=== PATIENT | female | born 1940 | race Caucasian/White ===

== ENCOUNTER 2020-01-06 08:04 | Outpatient (CLI) | payer OTHER, SELFPAY ==
[2020-01-06 08:37] LABS: Basophils Percent Auto 0.5 % (0.2-1.2); Eosinophils Absolute Auto 0.1 K/mm3 (0-0.3); Eosinophils Percent Auto 1.8 % (0-4.4); Hematocrit 41.8 % (37.0-47.0); Immature Granulocyte Absolute 0.02 K/mm3 (0.00-0.031); Immature Granulocyte Percent A 0.3 % (0-0.5); Lymphocytes Absolute Auto 1.13 K/mm3 (0.9-3.2); Mean Corpuscular HGB Conc 33.5 g/dl (32-36); Mean Corpuscular Hemoglobin 27.9 pg (26-34); Mean Corpuscular Volume 83.4 fl (80-100); Mean Platelet Volume 8.7 fl (7.4-10.4); Monocytes Absolute Auto 0.7 K/mm3 (0.1-0.6); Monocytes Percent Auto 10.5 % (2.6-8.5); Neutrophils Absolute Auto 4.3 K/mm3 (1.3-6.7); Neutrophils Percent Auto 68.9 % (45.5-73.1); Platelet Count Result 231 k/mm3 (150-375); Red Blood Count 5.01 M/mm3 (4.2-5.4); White Blood Count 6.3 K/mm3 (4.5-10.0)
[2020-01-06 08:48] LABS: Alanine Aminotransferase 26 U/L (4-35); Albumin Level 4.7 g/dL (3.5-5.1); Alkaline Phosphatase 95 U/L (38-126); Anion Gap 10 mmol/L (8-16); Aspartate Amino Transferase 30 U/L (14-36); Bilirubin,Total 0.7 mg/dL (0.2-1.3); Blood Urea Nitrogen 17 mg/dL (7-17); Calcium 9.8 mg/dL (8.4-10.2); Carbon Dioxide 27 mmol/L (22-30); Chloride 101 mmol/L (98-107); Cholesterol 226 mg/dL (0-200); Estimated Glomerular Filt Rate > 60; Glucose 105 mg/dL (65-105); HDL Direct 40 mg/dL; Potassium 3.9 mmol/L (3.4-5.0); Sodium 138 mmol/L (137-145); Triglycerides 150 mg/dL (<150)
[2020-01-06 08:59] LABS: LDL Cholesterol Direct 139 mg/dL
[2020-01-06 09:03] LABS: Add Urine Microscopic? YES; Appearance Urine Clear (Clear); Bacteria Urine Trace /hpf; Bilirubin Urine Negative (Negative); Blood Urine Negative (Negative); Color Urine Yellow (Yellow); Glucose Urine UA Negative (Negative); Ketones Urine Negative (Negative); Leukocyte Esterase Ur Trace LEU/UL (NEGATIVE); Nitrate Urine Negative (Negative); Protein Urine Negative (Negative); RBC Urine 0-2 /hpf (0-2); Specific Grav Ur 1.016 (1.001-1.035); Squamous Epithelial Cell Urine Rare /hpf (Few); Transitional Epi Cells Urine Rare /hpf (None Seen); WBC Urine 0-3 /hpf (0-3)
[2020-01-06 09:36] LABS: Vitamin D 25 Hydroxy 31.6 ng/mL
[2020-01-06 11:11] LABS: Hemoglobin A1C 5.6 % (<5.7)
== END 2020-01-06 08:05 | disposition home or self-care (01) ==
PROVIDERS: PCP Internal Medicine; Visit Provider Internal Medicine
DX: E55.9 Vitamin D deficiency, unspecified (principal); I10 Essential (primary) hypertension; R73.01 Impaired fasting glucose; E78.5 Hyperlipidemia, unspecified
CPT/HCPCS: 36415; 80053; 80061; 81001; 82306; 83036; 84443; 85025

== ENCOUNTER 2020-06-17 10:29 | Outpatient (CLI) | payer OTHER, SELFPAY ==
--- NOTE | ~2020-06-17 | MM_ITS ---
EXAMINATION: MM screening [facility] BI w rishi HISTORY: Screening mammogram TECHNIQUE: Craniocaudal and mediolateral oblique 3-D tomosynthesis images were obtained and synthetic 2-D images were generated. CAD analysis was submitted and interpreted. COMPARISON: 07/06/2018, 06/18/2018, 06/15/2016 BREAST PARENCHYMAL COMPOSITION: There are scattered areas of fibroglandular density. FINDINGS: There is no evidence of suspicious mass, calcification, or architectural distortion to sugg est malignancy in either breast. There has been no suspicious interval change. IMPRESSION: 1. No mammographic evidence of malignancy. 2. Recommend routine screening mammography in one year. BI-RADS Category 1: Negative Reviewed, dictated and finalized at location D.
== END 2020-06-17 10:30 | disposition home or self-care (01) ==
PROVIDERS: PCP Internal Medicine; Visit Provider Internal Medicine
DX: Z12.31 Encounter for screening mammogram for malignant neoplasm of breast (principal)
CPT/HCPCS: 77063; 77067

== ENCOUNTER 2020-06-22 07:48 | Outpatient (CLI) | payer OTHER, SELFPAY ==
[2020-06-22 08:50] LABS: Basophils Percent Auto 0.5 % (0.2-1.2); Eosinophils Absolute Auto 0.2 K/mm3 (0-0.3); Eosinophils Percent Auto 2.6 % (0-4.4); Hematocrit 41.8 % (37.0-47.0); Hemoglobin 13.5 g/dL (12.0-15.0); Immature Granulocyte Absolute 0.01 K/mm3 (0.00-0.031); Immature Granulocyte Percent A 0.2 % (0-0.5); Lymphocytes Absolute Auto 1.18 K/mm3 (0.9-3.2); Lymphocytes Percent Auto 18.2 % (18.3-44.2); Mean Corpuscular HGB Conc 32.3 g/dl (32-36); Mean Corpuscular Hemoglobin 27.3 pg (26-34); Mean Corpuscular Volume 84.6 fl (80-100); Mean Platelet Volume 8.7 fl (7.4-10.4); Monocytes Absolute Auto 0.7 K/mm3 (0.1-0.6); Neutrophils Absolute Auto 4.4 K/mm3 (1.3-6.7); Neutrophils Percent Auto 68.5 % (45.5-73.1); Platelet Count Result 195 k/mm3 (150-375); Red Blood Count 4.94 M/mm3 (4.2-5.4); Red Cell Distribution Width 14.5 % (11.5-14.5); White Blood Count 6.5 K/mm3 (4.5-10.0)
[2020-06-22 08:57] LABS: Hemoglobin A1C 5.7 % (<5.7)
[2020-06-22 09:00] LABS: Alanine Aminotransferase 16 U/L (4-35); Albumin Level 4.6 g/dL (3.5-5.1); Alkaline Phosphatase 95 U/L (38-126); Anion Gap 6 mmol/L (8-16); Aspartate Amino Transferase 26 U/L (14-36); Bilirubin,Total 0.7 mg/dL (0.2-1.3); Blood Urea Nitrogen 16 mg/dL (7-17); Calcium 9.9 mg/dL (8.4-10.2); Carbon Dioxide 34 mmol/L (22-30); Chloride 100 mmol/L (98-107); Cholesterol 137 mg/dL (0-200); Estimated Glomerular Filt Rate > 60; Glucose 116 mg/dL (65-105); HDL Direct 48 mg/dL; Potassium 3.7 mmol/L (3.4-5.0); Sodium 140 mmol/L (137-145); Triglycerides 102 mg/dL (<150)
[2020-06-22 09:11] LABS: LDL Cholesterol Direct 64 mg/dL
[2020-06-22 16:15] LABS: Creatinine Urine 164.2 mg/dL
[2020-06-22 16:20] LABS: MALB Creatinine Ratio 4.7 mg/g (0-30); Microalbumin Urine Random 7.7 mg/L (0-16.7)
== END 2020-06-22 07:49 | disposition home or self-care (01) ==
PROVIDERS: PCP Internal Medicine; Visit Provider Internal Medicine
DX: E78.5 Hyperlipidemia, unspecified (principal); R73.01 Impaired fasting glucose; E78.2 Mixed hyperlipidemia
CPT/HCPCS: 36415; 80053; 80061; 82043; 83036; 85025

== ENCOUNTER 2021-01-12 10:31 | Outpatient (CLI) | payer OTHER, SELFPAY ==
[2021-01-12 11:12] LABS: Hemoglobin A1C 5.7 % (<5.7)
[2021-01-12 11:15] LABS: Anion Gap 9 mmol/L (8-16); Blood Urea Nitrogen 20 mg/dL (7-17); Calcium 9.9 mg/dL (8.4-10.2); Carbon Dioxide 32 mmol/L (22-30); Chloride 99 mmol/L (98-107); Estimated Glomerular Filt Rate > 60; Glucose 146 mg/dL (65-110); Potassium 3.6 mmol/L (3.4-5.0); Sodium 140 mmol/L (137-145)
[2021-01-12 11:33] LABS: Vitamin D 25 Hydroxy 38.8 ng/mL
[2021-01-12 11:39] LABS: Creatinine Urine 88.5 mg/dL
[2021-01-12 11:46] LABS: MALB Creatinine Ratio 7.8 mg/g (0-30); Microalbumin Urine Random 6.9 mg/L (0-16.7)
== END 2021-01-12 10:32 | disposition home or self-care (01) ==
LOC: ANHLAB 10:34
PROVIDERS: PCP Internal Medicine; Visit Provider Internal Medicine
DX: R73.01 Impaired fasting glucose (principal); E55.9 Vitamin D deficiency, unspecified; E78.5 Hyperlipidemia, unspecified; F43.9 Reaction to severe stress, unspecified
CPT/HCPCS: 36415; 80048; 82043; 82306; 83036; 84443

== ENCOUNTER 2021-08-09 15:38 | Emergency (ER) | payer OTHER, SELFPAY ==
--- NOTE | ~2021-08-09 | XR_ITS ---
EXAMINATION: XR shoulder LT min 2V DATE: 08/09/2021 16:18 INDICATION: Left shoulder pain post fall TECHNIQUE: AP internally and externally rotated, AP oblique externally rotated and axillary views of the left shoulder were obtained. COMPARISON: None FINDINGS: Normal alignment. No fracture. Glenohumeral joint is normal. Mild acromioclavicular osteoarthritis. Small subacromial spurs along the lateral margin of the acromion. Associated mild cystic change at th e middle facet of the greater tuberosity which can be seen with infraspinatus tendon disease. Visual is portions of the left lung are clear. Soft tissues are unremarkable. IMPRESSION: No acute osseous abnormality. Reviewed, dictated and finalized at location A.
[2021-08-09 15:47] VITALS: BP 153/91; PULSE 120; RESP 20; TEMP 37.3; O2SAT 99
--- NOTE | 2021-08-09 15:55 | ED.GENADULT ---
HPI - General Adult General Chief complaint: Fall Stated complaint: Shoulder and Leg Pain Time Seen by Provider: 08/09/21 15:55 Source: patient Mode of arrival: ambulatory Limitations: no limitations History of Present Illness HPI narrative: 81-year-old female presented for complaint of acute on chronic left shoulder pain after injury 2 days ago. She states she was standing on a chair to change a lightbulb when she fell off and landed on the left side. She struck her head on a cabinet, but denies loss of consciousness. She applied ice for an hour to the head; denies dizziness, nausea, vomiting or confusion. Endorses left anterior leg pain with bruising but is ambulatory with steady gait. Left shoulder has decreased ROM, states she has been to PT since April for shoulder pain. Denies numbness, tingling or weakness of the left arm. Denies neck pain. She took Advil for pain. Takes baby aspirin daily. Related Data Home Medications Medication Instructions Recorded Confirmed aspirin 81 mg tablet,delayed 81 mg PO DAILY 01/10/20 08/09/21 release multivitamin (Daily Multi-Vitamin 1 tablet PO DAILY 07/02/20 08/09/21 tablet) vitamin B complex (B 1 tablet PO DAILY 07/02/20 08/09/21 Complex-Vitamin B12 tablet) vitamin E 200 unit capsule 200 unit PO DAILY 07/02/20 08/09/21 Allergies Allergy/AdvReac Type Severity Reaction Status Date / Time MEPERIDINE HCL Allergy Unknown NAUSEA AND Uncoded 08/09/21 15:43 VOMITING Review of Systems Review of Systems: CONSTITUTIONAL: Denies body aches, fever, chills EYES: Denies visual changes ENT: Denies rhinorrhea, congestion CARDIOVASCULAR: Denies chest pain, palpitations, or edema. RESPIRATORY: Denies cough or dyspnea. SKIN: Denies rash, itching, or wounds. MUSCULOSKELETAL: Denies back pain, joint pain, or myalgia. NEUROLOGIC: Denies headache, numbness, tingling, or weakness. PSYCH: Denies depression or anxiety. All systems reviewed & are unremarkable except as noted in HPI and below PMFSH Past Medical History Medical History Essential hypertension Post-menopausal bleeding Pre-operative examination Family History Family History Sibling Hypertension Mother Cerebrovascular accident Family history of thyroid disease Hypertension Patient's mother is Father Family history of dementia Hypertension Patient's father is Family history of cardiovascular disease Family history of Alzheimer's disease Family history of hearing loss Family history of heart disease in male family member before age 55 Social History Social History Smoking status: Never smoker Second hand tobacco smoke exposure: No Alcohol intake: former Comments At time of signature, I have reviewed and agree with nursing past medical, surgical, social and family history unless otherwise noted. Please see nursing chart for further information. There is no relevant family history pertinent to the presenting complaint Exam Narrative: GENERAL: Well-appearing, no acute distress. HEAD: Normocephalic, Left Temporal lobe with abrasion approx 1cla0nm, no active drainage, no bruising EYES: PERRLA, EOMI, conjunctivae clear NECK: Supple. No vertebral point tenderness, states it is 'always tender between C5 and C6 since surgery' CHEST: Speaks in full sentences. No respiratory distress. HEART: Regular rate and rhythm. Normal and equal peripheral pulses. EXTREMITIES: LUE has normal strength and sensation, Limited range of motion to LUE at shoulder. Tender with palpation to anterior deltoid. No edema or ecchymosis. No open wounds, skin tenting, or obvious deformity; alignment normal, pulse palpable and equal bilaterally, skin warm, dry, pink. Capillary refill less than 3 seconds. SKIN: Warm, dry, no rash. left anterior curiel
== END 2021-08-09 16:35 | disposition home or self-care (01) ==
PROVIDERS: Emergency Provider Nurse Practitioner Family; PCP Internal Medicine
DX: M25.512 Pain in left shoulder (principal); S00.01XA Abrasion of scalp, initial encounter; W07.XXXA Fall from chair, initial encounter; Z79.82 Long term (current) use of aspirin; I10 Essential (primary) hypertension
CPT/HCPCS: 73030; 99213; G0463

== ENCOUNTER 2021-08-10 15:20 | Outpatient (CLI) | payer OTHER, SELFPAY ==
[2021-08-10 15:54] LABS: Basophils Percent Auto 0.4 % (0.2-1.2); Eosinophils Absolute Auto 0.1 K/mm3 (0-0.3); Eosinophils Percent Auto 1.7 % (0-4.4); Hematocrit 37.6 % (37.0-47.0); Hemoglobin 12.2 g/dL (12.0-15.0); Immature Granulocyte Absolute 0.01 K/mm3 (0.00-0.031); Immature Granulocyte Percent A 0.1 % (0-0.5); Lymphocytes Absolute Auto 1.19 K/mm3 (0.9-3.2); Lymphocytes Percent Auto 17.2 % (18.3-44.2); Mean Corpuscular HGB Conc 32.4 g/dl (32-36); Mean Corpuscular Hemoglobin 26.5 pg (26-34); Mean Corpuscular Volume 81.6 fl (80-100); Mean Platelet Volume 8.6 fl (7.4-10.4); Monocytes Absolute Auto 0.7 K/mm3 (0.1-0.6); Neutrophils Absolute Auto 4.9 K/mm3 (1.3-6.7); Neutrophils Percent Auto 70.6 % (45.5-73.1); Platelet Count Result 241 k/mm3 (150-375); Red Blood Count 4.61 M/mm3 (4.2-5.4); Red Cell Distribution Width 14.8 % (11.5-14.5); White Blood Count 6.9 K/mm3 (4.5-10.0)
[2021-08-10 16:16] LABS: Alanine Aminotransferase 18 U/L (6-35); Albumin Level 4.6 g/dL (3.5-5.1); Alkaline Phosphatase 95 U/L (38-126); Anion Gap 9 mmol/L (8-16); Aspartate Amino Transferase 27 U/L (14-36); Bilirubin,Total 0.6 mg/dL (0.2-1.3); Blood Urea Nitrogen 17 mg/dL (7-17); Calcium 9.1 mg/dL (8.4-10.2); Carbon Dioxide 27 mmol/L (22-30); Chloride 103 mmol/L (98-107); Cholesterol 148 mg/dL (0-200); Estimated Glomerular Filt Rate > 60; Glucose 120 mg/dL (65-110); HDL Direct 40 mg/dL; Potassium 3.9 mmol/L (3.4-5.0); Sodium 139 mmol/L (137-145); Triglycerides 138 mg/dL (<150)
[2021-08-10 16:24] LABS: Creatinine Urine 70.9 mg/dL
[2021-08-10 16:25] LABS: Hemoglobin A1C 5.9 % (<5.7)
[2021-08-10 16:27] LABS: LDL Cholesterol Direct 72 mg/dL
[2021-08-10 16:28] LABS: Vitamin D 25 Hydroxy 33.7 ng/mL
[2021-08-10 16:52] LABS: MALB Creatinine Ratio < 8.5 mg/g (0-30); Microalbumin Urine Random < 6.0 mg/L (0-16.7)
== END 2021-08-10 15:21 | disposition home or self-care (01) ==
LOC: ANHLAB 15:25
PROVIDERS: PCP Internal Medicine; Visit Provider Internal Medicine
DX: E55.9 Vitamin D deficiency, unspecified (principal); F32.1 Major depressive disorder, single episode, moderate; R73.01 Impaired fasting glucose; E78.5 Hyperlipidemia, unspecified; I10 Essential (primary) hypertension
CPT/HCPCS: 36415; 80053; 80061; 82043; 82306; 83036; 84443; 85025

== ENCOUNTER 2021-08-20 08:40 | Outpatient (CLI) | payer OTHER, SELFPAY ==
--- NOTE | ~2021-08-20 | US_ITS ---
EXAMINATION: US carotid duplex BI DATE: 08/20/2021 09:14 INDICATION: Transient ischemic attack. TECHNIQUE: Grayscale, color Doppler, and pulsed Doppler images of the cervical carotid arteries were obtained. The degree of vessel stenosis is placed in one of the following categories: normal, <50%, 5 0-69%, >=70% but less than near-occlusion, near-occlusion, or total occlusion. Note that percent sten osis relative to normal distal artery lumen diameter is indirectly measured from velocity measurement s as described by Kamran, et al. Radiology 2003; 229:340-346. COMPARISON: None. FINDINGS: RIGHT: The right common carotid artery (CCA) peak systolic velocity (PSV) is 80 cm/s. The right internal car otid artery (ICA) PSV is 77 cm/s. The right ICA end-diastolic velocity (EDV) is 16 cm/s. The right IC A/CCA PSV ratio is 1.0. Grayscale and color Doppler images yield an estimate of <50% diameter reducti on from plaque in the ICA. There is antegrade flow in the right vertebral artery. LEFT: The left CCA PSV is 86 cm/s. The left ICA PSV is 111 cm/s. The left ICA EDV is 25 cm/s. The left ICA/ CCA PSV ratio is 1.3. Grayscale and color Doppler images yield an estimate of <50% diameter reduction from plaque in the ICA. There is antegrade flow in the left vertebral artery. IMPRESSION: 1. <50% stenosis in the right internal carotid artery. 2. <50% stenosis in the left internal carotid artery. Reviewed, dictated and finalized at location A.
--- NOTE | ~2021-08-20 | CT_ITS ---
EXAMINATION: CT brain wo con DATE: 08/20/2021 09:00 INDICATION: Head injury. Transient ischemic attack. TECHNIQUE: Computed tomography (CT) of the head was performed without intravenous contrast. The mA wa s adjusted according to patient size. Iterative reconstruction technique was employed. The dose-lengt h product was 681.00 mGy-cm. COMPARISON: None FINDINGS: There are scattered areas of low attenuation in the cerebral white matter. There is a 1.6 x 2.8 cm arachnoid cyst anterior to right temporal lobe. There is no intracranial hemorrhage, acute in farction, or abnormal intracranial mass lesion. The ventricles are normal in size. The orbits are nor mal. There is mild mucosal thickening in the paranasal sinuses. The mastoid air cells are normal. IMPRESSION: 1. Moderate nonspecific cerebral white matter disease, which likely represents chronic small vessel i schemic disease. Reviewed, dictated and finalized at location A. IMPRESSION: 1. Moderate nonspecific cerebral white matter disease, which likely represents chronic small vessel ischemic disease.
--- NOTE | 2021-08-20 09:34 | ECHO_ITS ---
Patient Info Name: Ava Jeffries Age: 81 years : 1940 Gender: Female Ht: 64 in Wt: 194 lbs BSA: 2.03 m2 HR: 78 bpm BP: 165 / 82 mmHg Technical Quality: Good Exam Date: 08/20/2021 9:58 AM Exam Location: [facility] Patient Status: Outpatient Admit Date: 08/20/2021 Staff Ordering Physician: Brenton Nash MD [employer] Supervisor: Saida Aleman RDCS Attending Provider: Brenton Nash MD Exam Type: CA echo doppler w bubble study Study Info Indications - TIA Complete two-dimensional, color flow and Doppler transthoracic echocardiogram is performed with contrast to opacify the left ventricle and to improve the deliniation of the left ventricle endocardial borders. Contrast/Agitated Saline Contrast/Ag. Saline: Agitated Saline Amount: 20.00 ml Administered By: Janis Levy RDCS New IV Access: Left Site Condition: IV removed Summary 1. Left ventricular chamber dimension is normal. 2. Left ventricular systolic function is normal, estimated at 60-65%. 3. The left ventricular diastolic function is grade I diastolic dysfunction. 4. E/e' 8 is minimally elevated. 5. There is mild aortic valve sclerosis. 6. There is trace tricuspid valve regurgitation. 7. Mild pulmonary hypertension, estimated pulmonary arterial systolic pressure is 42 mmHg. Left Ventricle E/e' 8 is minimally elevated. Left ventricular chamber dimension is normal. Left ventricular systolic function is normal, estimated at 60-65%. The left ventricular diastolic function is grade I diastolic dysfunction. Right Ventricle Right ventricular chamber dimension is normal. Right ventricular systolic function is normal. Left Atria Left atrial chamber dimension is normal. Right Atria Right atrial chamber dimension is normal. Atrial Septum Agitated saline injection with and without valsalva maneuver opacified right side cardiac chambers without shunt to left side cardiac chambers. Intact interatrial septum visualized by 2D and agitated saline imaging. Aortic Valve The aortic valve is trileaflet. There is mild aortic valve sclerosis. There is no aortic valve stenosis. There is no aortic valve regurgitation. Pulmonic Valve There is no pulmonic regurgitation. Mitral Valve There is no mitral valve stenosis. There is no mitral valve regurgitation. Tricuspid Valve There is trace tricuspid valve regurgitation. Mild pulmonary hypertension, estimated pulmonary arterial systolic pressure is 42 mmHg. Pericardium/Pleural There is no pericardial effusion. Inferior Vena Cava Normal inferior vena cava with >50% collapse upon inspiration consistent with normal right atrial pressure, 5 mmHg. Aorta The aortic root size at the sinus of Valsalva is normal. Left Ventricular Outflow Tract Name Value Normal LVOT 2D LVOT Diameter 2.0 cm LVOT Doppler LVOT Peak Gradient 5 mmHg LVOT Mean Gradient 3 mmHg LVOT VTI 28 cm LVOT VTI/AV VTI Ratio 1.0 LVOT
== END 2021-08-20 08:41 | disposition home or self-care (01) ==
PROVIDERS: PCP Internal Medicine; Visit Provider Internal Medicine
DX: I65.23 Occlusion and stenosis of bilateral carotid arteries (principal); R90.82 White matter disease, unspecified
CPT/HCPCS: 70450; 93306; 93880; 96375

== ENCOUNTER 2022-02-08 08:04 | Outpatient (CLI) | payer OTHER, SELFPAY ==
[2022-02-08 19:51] LABS: Alanine Aminotransferase 21 U/L (6-35); Albumin Level 4.6 g/dL (3.5-5.1); Alkaline Phosphatase 103 U/L (38-126); Anion Gap 7 mmol/L (8-16); Aspartate Amino Transferase 32 U/L (14-36); Bilirubin,Total 0.8 mg/dL (0.2-1.3); Blood Urea Nitrogen 18 mg/dL (7-17); Calcium 9.4 mg/dL (8.4-10.2); Carbon Dioxide 32 mmol/L (22-30); Chloride 102 mmol/L (98-107); Cholesterol 139 mg/dL (0-200); Estimated Glomerular Filt Rate > 60; Glucose 102 mg/dL (65-110); HDL Direct 50 mg/dL; Potassium 3.8 mmol/L (3.4-5.0); Sodium 141 mmol/L (137-145); Triglycerides 75 mg/dL (<150)
[2022-02-08 20:05] LABS: LDL Cholesterol Direct 62 mg/dL
[2022-02-08 20:58] LABS: Hemoglobin A1C 5.8 % (<5.7)
== END 2022-02-08 08:05 | disposition home or self-care (01) ==
LOC: ANHGOSHLAB 08:07
PROVIDERS: PCP Family Medicine; Visit Provider Family Medicine
DX: R73.03 Prediabetes (principal); I10 Essential (primary) hypertension
CPT/HCPCS: 36415; 80053; 80061; 83036

== ENCOUNTER → 2022-08-04 16:04 | Outpatient (CLI) | payer OTHER, SELFPAY ==
--- NOTE | ~2022-08-04 | XR_ITS ---
EXAMINATION: XR shoulder RT min 2V INDICATION: Right shoulder pain TECHNIQUE: Four views of the right shoulder are submitted. COMPARISON: None FINDINGS: Normal alignment. No fracture. There is moderate osteoarthritis of the glenohumeral and acr omioclavicular joints. Soft tissues are unremarkable. IMPRESSION: 1. Osteoarthritis without acute osseous abnormality. Reviewed, dictated and finalized at location F.
== END ==
PROVIDERS: PCP Family Medicine; Visit Provider Family Medicine
DX: M19.011 Primary osteoarthritis, right shoulder (principal)
CPT/HCPCS: 73030

== ENCOUNTER 2022-09-08 09:00 | Outpatient (RCR) | payer OTHER, SELFPAY ==
--- NOTE | 2022-08-17 08:55 | PTOPEVAL1 ---
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 Pain limits the use of her R arm with home and self care tasks. With the evaluation: R shoulder active strength and ROM are decreased; poor standing posture with forward head, rounded thoracic and rounded shoulder positioning; tightness over anterior shoulder/pec and weakness over posterior shoulder and scapular areas. Her hobbies of reading and playing cards place her in poor positioning. Skilled PT services are indicated for modalities to decrease pain, therapeutic exercises to increase flexibility and strength of shoulder/ scapular complex, with education for home exercises and posture correction. Plan of Care Interventions Electrical Stimulation,Hot Pack/Cold Pack,Manual Therapy,Neuro Re-education,Patient Education,Therapeutic Activities,Therapeutic Exercise,Ultrasound,Other Other Interventions tree, [facility] PT Services Indicated Yes
--- NOTE | 2022-09-08 09:42 | PTOPDC ---
Assessment and note entered by Jessica Wynne, PT Evaluation Information Assessment Status Discharge Diagnosis R shoulder pain Onset Nov 2021 Subjective Information Ava reports: at home, can do everything around the house, but cutting grass; doing all the exercises at home; feel like ready to be done with therapy; Reported Pain Level Pain Score Self Report Additional Pain Score Comments pain range in the past week 0-4/10; increase pain: sit too long and holding book to read, lie on R side too long with sleeping decrease pain: moving arm, change position; not taking any pain meds for shoulder--sometimes take for hip pain; at the end of the day, shoulder is OK Assessment PT Clinical Summary Ava has received 7 PT sessions. She has improved in all areas: decrease pain rating at worst from 8 to 4/10; R shoulder ROM and strength with return to all of her normal tasks; posture of shoulders. Education completed for HEP, positioning with home and recreational activities. The goals were met. Discharge from PT services. Plan of Care PT Services Indicated No
== END 2022-09-09 11:27 | disposition home or self-care (01) ==
LOC: ANHPT 09:00
PROVIDERS: PCP Family Medicine; Visit Provider Family Medicine
DX: M25.511 Pain in right shoulder (principal); G89.29 Other chronic pain
CPT/HCPCS: 97110; 97140; 97161

== ENCOUNTER 2023-01-26 07:54 | Outpatient (CLI) | payer OTHER, SELFPAY ==
[2023-01-26 08:34] LABS: Basophils Percent Auto 0.5 % (0.2-1.2); Eosinophils Absolute Auto 0.1 K/mm3 (0-0.3); Eosinophils Percent Auto 1.1 % (0-4.4); Hematocrit 42.4 % (37.0-47.0); Hemoglobin 13.5 g/dL (12.0-15.0); Immature Granulocyte Absolute 0.02 K/mm3 (0.00-0.031); Immature Granulocyte Percent A 0.3 % (0-0.5); Lymphocytes Absolute Auto 1.06 K/mm3 (0.9-3.2); Mean Corpuscular HGB Conc 31.8 g/dl (32-36); Mean Corpuscular Hemoglobin 28.1 pg (26-34); Mean Corpuscular Volume 88.1 fl (80-100); Mean Platelet Volume 8.7 fl (7.4-10.4); Monocytes Absolute Auto 0.6 K/mm3 (0.1-0.6); Monocytes Percent Auto 9.8 % (2.6-8.5); Neutrophils Absolute Auto 4.4 K/mm3 (1.3-6.7); Neutrophils Percent Auto 71.3 % (45.5-73.1); Platelet Count Result 171 k/mm3 (150-375); Red Blood Count 4.81 M/mm3 (4.2-5.4); Red Cell Distribution Width 14.5 % (11.5-14.5); White Blood Count 6.2 K/mm3 (4.5-10.0)
[2023-01-26 08:50] LABS: Alanine Aminotransferase 23 U/L (6-35); Albumin Level 4.9 g/dL (3.5-5.1); Alkaline Phosphatase 92 U/L (38-126); Anion Gap 10 mmol/L (8-16); Aspartate Amino Transferase 30 U/L (14-36); Bilirubin,Total 1.1 mg/dL (0.2-1.3); Blood Urea Nitrogen 15 mg/dL (7-17); Carbon Dioxide 31 mmol/L (22-30); Chloride 99 mmol/L (98-107); Cholesterol 152 mg/dL (0-200); Estimated Glomerular Filt Rate > 60; Glucose 110 mg/dL (65-110); HDL Direct 58 mg/dL; Potassium 3.6 mmol/L (3.4-5.0); Sodium 140 mmol/L (137-145); Triglycerides 88 mg/dL (<150)
[2023-01-26 09:01] LABS: LDL Cholesterol Direct 67 mg/dL
[2023-01-26 09:52] LABS: Hemoglobin A1C 5.5 % (<5.7)
[2023-01-26 09:58] LABS: Vitamin D 25 Hydroxy 30.3 ng/mL
== END 2023-01-26 07:55 | disposition home or self-care (01) ==
LOC: ANHLAB 07:56
PROVIDERS: PCP Family Medicine; Visit Provider Family Medicine
DX: Z00.00 Encounter for general adult medical examination without abnormal findings (principal); I10 Essential (primary) hypertension; E53.8 Deficiency of other specified B group vitamins; R73.03 Prediabetes; F32.A Depression, unspecified; E78.5 Hyperlipidemia, unspecified; E55.9 Vitamin D deficiency, unspecified
CPT/HCPCS: 36415; 80053; 80061; 82306; 82607; 83036; 84443; 85025

== ENCOUNTER 2023-10-24 13:12 | Emergency (ER) | payer OTHER, SELFPAY ==
--- NOTE | ~2023-10-24 | CT_ITS ---
EXAMINATION: CT brain wo con DATE: 10/24/2023 14:34 INDICATION: Syncope and head injury TECHNIQUE: Computed tomography (CT) of the head was performed without intravenous contrast. Sagittal and coronal reconstructions were performed. The mA was adjusted according to patient size. Iterative reconstruction technique was employed. The dose-length product was 605.33 mGy-cm. COMPARISON: 08/20/2021 FINDINGS: No fracture. No acute intracranial hemorrhage or acute infarction. Unchanged possible CSF attenuation arachnoid cyst anterior to the right temporal lobe. There is moderate scattered white matter hypoatt enuation consistent with chronic small vessel ischemic disease. Ventricles are normal and symmetric. No mass/mass effect. Changes of bilateral intraocular lens replacement. The orbits, paranasal sinuses and mastoid air cells are normal. IMPRESSION: 1. No fracture or acute intracranial process. 2. Moderate scattered calcific white matter hypoattenuation consistent with chronic small vessel isch emic disease. Reviewed, dictated and finalized at location A. IMPRESSION: 1. No fracture or acute intracranial process. 2. Moderate scattered calcific white matter hypoattenuation consistent with chr onic small vessel ischemic disease.
--- NOTE | ~2023-10-24 | XR_ITS ---
EXAMINATION: XR chest 2V DATE: 10/24/2023 15:34 INDICATION: Syncope. TECHNIQUE: Frontal and lateral views of the chest were obtained. COMPARISON: Chest 2 views 04/03/2017 FINDINGS: There is mild elevation of right hemidiaphragm. No pneumonia, pleural effusion or pneumotho rax. The heart size is normal. IMPRESSION: 1. Mild elevation of right hemidiaphragm, worsened from 04/03/2017. Reviewed, dictated and finalized at location A.
[2023-10-24 13:15] VITALS: BP 171/70; PULSE 67; RESP 15; TEMP 36; O2SAT 96
--- NOTE | 2023-10-24 13:25 | ECG_ITS ---
Test Date: 2023-10-24 13:21:18 Measurements Intervals Mora Rate: 70 P: 48 AR: 170 QRS: -9 QRSD: 97 T: 32 QT: 437 QTc: 473 Interpretive Statements SINUS RHYTHM NORMAL ELECTROCARDIOGRAM No previous ECG available for comparison Electronically Signed On 10-24-2023 18:02:02 CDT by Jef Alvarado M.D.
[2023-10-24 13:41] LABS: Basophils Percent Auto 0.5 % (0.2-1.2); Eosinophils Absolute Auto 0.1 K/mm3 (0-0.3); Eosinophils Percent Auto 1.6 % (0-4.4); Hematocrit 39.1 % (37.0-47.0); Hemoglobin 12.9 g/dL (12.0-15.0); Immature Granulocyte Absolute 0.05 K/mm3 (0.00-0.031); Immature Granulocyte Percent A 0.6 % (0-0.5); Lymphocytes Absolute Auto 2.03 K/mm3 (0.9-3.2); Lymphocytes Percent Auto 26.3 % (18.3-44.2); Mean Corpuscular Hemoglobin 28.2 pg (26-34); Mean Corpuscular Volume 85.6 fl (80-100); Monocytes Percent Auto 12.7 % (2.6-8.5); Neutrophils Absolute Auto 4.5 K/mm3 (1.3-6.7); Neutrophils Percent Auto 58.3 % (45.5-73.1); Platelet Count Result 168 k/mm3 (150-375); Red Blood Count 4.57 M/mm3 (4.2-5.4); Red Cell Distribution Width 14.4 % (11.5-14.5); White Blood Count 7.7 K/mm3 (4.5-10.0)
[2023-10-24 13:53] LABS: Alanine Aminotransferase 19 U/L (6-35); Albumin Level 4.6 g/dL (3.5-5.1); Alkaline Phosphatase 89 U/L (38-126); Anion Gap 11 mmol/L (4-12); Aspartate Amino Transferase 31 U/L (14-36); Bilirubin,Total 0.5 mg/dL (0.2-1.3); Blood Urea Nitrogen 20 mg/dL (7-17); Calcium 9.4 mg/dL (8.4-10.2); Carbon Dioxide 28 mmol/L (22-30); Chloride 98 mmol/L (98-107); Estimated CRCL calculation 53 ml/min; Estimated Glomerular Filt Rate > 60; Glucose 148 mg/dL (65-110); Potassium 3.3 mmol/L (3.4-5.0); Sodium 137 mmol/L (137-145)
--- NOTE | 2023-10-24 14:16 | ED.SYNCOPE ---
HPI - Syncope General Chief Complaint: Syncope Stated Complaint: syncopy Time Seen by Provider: 10/24/23 13:51 History of Present Illness HPI narrative: Patient is an 83-year-old female with a history of hypertension, diabetes, hyperlipidemia presenting after syncopal episode. Patient was at the grocery store when she suddenly felt lightheaded and nauseated. She then fell to the ground striking her lip. She denies headache. She is unsure on loss of consciousness. Currently, she complains of nausea. She denies vertigo, numbness or weakness, dysarthria, aphasia. No chest pain or shortness of breath. No vomiting or diarrhea lately. No dysuria. Related Data Home Medications Medication Instructions Recorded Confirmed multivitamin (Daily Multi-Vitamin 1 tablet PO DAILY 07/02/20 08/07/23 tablet) acetaminophen 325 mg tablet 325 mg PO Q6H PRN 02/07/22 08/07/23 (Tylenol) vitamin E 200 unit capsule 200 unit PO DAILY PRN 08/04/22 08/07/23 Allergies Allergy/AdvReac Type Severity Reaction Status Date / Time meperidine AdvReac Unknown Nausea and Verified 10/24/23 14:22 Vomiting Review of Systems Review of Systems: All systems reviewed & are unremarkable except as noted in HPI and below PMFSH Past Medical History Medical History Chronic right shoulder pain Dyslipidemia Essential hypertension Post-menopausal bleeding Prediabetes Surgical History Surgical History History of ankle surgery (~1999) Left - ORIF of left ankle fracture History of cataract surgery (~10/2021) b/l S/P excision of lipoma (~04/2012) Mid back Family History Family History Sibling Hypertension Mother Cerebrovascular accident Family history of thyroid disease Hypertension Patient's mother is Father Family history of dementia Hypertension Patient's father is Family history of cardiovascular disease Family history of Alzheimer's disease Family history of hearing loss Family history of heart disease in male family member before age 55 Social History Social History Smoking status: Never smoker Second hand tobacco smoke exposure: No Alcohol intake: current Alcohol use details: socially Substance use: never Substance use type: does not use Lack of Transportation: No Lack of Food: Never True Current Housing: I Have Housing Concerned About Future Housing: No Difficulty Paying Gas/Electric Bills: No Difficulty Paying for Meds: No Currently Unemployed: No Education: Trade/Vocational Certificate Difficulty w/ Childcare or Family Care: Decline to Answer Living arrangements: with family Additional living arrangements comments: Occupation/Education: retired Gender identity (if verbalized by the patient): Female Sexual Orientation (if Verbalized by the Patient): Straight or Heterosexual Agree to blood products: Yes Exam Narrative: GENERAL: Nontoxic, lying in bed in no acute distress but does appear a bit uncomfortable HEAD: Normocephalic, atraumatic. EYES: PERRLA and EOMI. ENT: 3-4mm laceration just inferior to left leg, no vermilion border involvement NECK: Supple. no midline tenderness CHEST: Clear to auscultation. No respiratory distress. HEART: Regular rate and rhythm ABDOMEN: Soft, nontender, nondistended EXTREMITIES: Normal range of motion. No edema. SKIN: Warm, dry, as above NEURO: No focal deficits. Alert and oriented x3. PSYCH: Normal mood and affect. Course Vital Signs Vital signs: Vital Signs Temperature 96.8 F L 10/24/23 13:15 Pulse Rate 67 10/24/23 13:15 Respiratory Rate 15 10/24/23 13:15 Blood Pressure 171/70 H 10/24/23 13:15 Pulse Oximetry 96 10/24/23 13:15 Oxygen Deliv
[2023-10-24] MEDS: ONDANSETRON INJ 4 MG/2 ML VIAL IV PUSH ×2 (14:44→17:03)
[2023-10-24] MEDS: SODIUM CHLORIDE 0.9% IV 1,000 ML 999 ML IV CONT ×2 (14:45→17:03)
[2023-10-24 14:52] VITALS: BP 163/75; PULSE 80; RESP 14; O2SAT 98
[2023-10-24 15:15] LABS: Lipase 60 U/L (23-300)
[2023-10-24 15:28] LABS: Troponin I < 0.012 ng/mL (0.000-0.034)
[2023-10-24 16:35] VITALS: BP 138/69; PULSE 80
[2023-10-24] MEDS: MECLIZINE HCL 25 MG TABLET PO (17:02)
[2023-10-24 17:06] VITALS: BP 159/68; PULSE 83; RESP 18; O2SAT 92
--- NOTE | 2023-10-24 17:06 | PC.NURSE ---
Attempted to do orthostatic vitals, pt began to vomit. Informed
[2023-10-24 17:26] LABS: Add Urine Microscopic? NO; Appearance Urine Clear (Clear); Bilirubin Urine Negative (Negative); Blood Urine Negative (Negative); Color Urine Yellow (Yellow); Glucose Urine UA Negative (Negative); Ketones Urine Trace mg/dL (Negative); Leukocyte Esterase Ur Negative LEU/UL (Negative); Nitrate Urine Negative (Negative); Protein Urine Negative (Negative); Specific Grav Ur 1.014 (1.001-1.035)
== END 2023-10-24 19:22 | disposition home or self-care (01) ==
PROVIDERS: Student in an Organized Health Care Education/Training Program; Emergency Provider Emergency Medicine; PCP Family Medicine
DX: R55 Syncope and collapse (principal); E87.6 Hypokalemia; R42 Dizziness and giddiness; R11.0 Nausea; I10 Essential (primary) hypertension; E11.9 Type 2 diabetes mellitus without complications; E78.5 Hyperlipidemia, unspecified; Z79.4 Long term (current) use of insulin; Z79.899 Other long term (current) drug therapy
CPT/HCPCS: 36415; 70450; 71046; 80053; 81003; 83690; 83735; 84484; 85025; 93005; 96361; 96374; 96376; 99284; A9270; J2405; J7030

== ENCOUNTER 2023-11-23 10:30 | Outpatient (RCR) | payer OTHER, SELFPAY ==
--- NOTE | 2023-11-08 10:54 | OPREHPOC ---
Outpatient Therapy Plan of Care This is a Multidisciplinary Plan of Care that may contain components documented by all disciplines (PT, OT, and ST.) PT Problem 1 PT Problem #1 Knowledge Deficit PT Goal 1 Goal / Goal Update *indep with HEP * good safety awareness with mobility Target Visit 6 PT Problem 2 PT Problem #2 Impaired Functional Mobility PT Goal 1 Goal / Goal Update improve balance and vestibular system, for better gait and mobility & safety 1* fernandez balance score of 56/56 2* pt walk 40' with head motions R/L and up/down 3x, without loss of balance 3* single leg standing R x 10 seconds 4* single leg standing L x 10 seconds Target Visit 6
--- NOTE | 2023-11-08 10:55 | PTOPEVAL1 ---
Assessment and note entered by Jessica Wynne PT Evaluation Information Assessment Status Evaluation ICD-10 Condition Codes (PT) Dizziness & Giddiness R42; vestibular rehab Onset 10-24-23 Subjective Information to ER on 10-24-23 due to fall from syncope and nausea; CT head and cardiac work ups were negative; have not had any other falls in the past 6 months, but sometimes feel unsteady with walking; since that trip to ER, have not had any dizziness or nausea; take multiple meds: HTN, diabetes, cholesterol, cardiac--pt stated several of her meds she is to stay out of the sun/heat; reports good water intake; Activity: retired, at home, performs all in-home and self care tasks indep vitals at rest: 171/ 65; oxygen sat 97%, HR 58; after balance activities: 146/69; encouraged pt to monitor her BP at home Reported Pain Level Pain Score 0: Self Report Assessment PT Clinical Summary Ava has the diagnosis of vestibular rehab. She went to the ER due to syncopy/ fall, with testing negative, the report stated hypotension/vasovagal response. She has not had any dizziness since that day and has not had any other falls in the past 6 months. Dizziness Handicap Index rating of 18%- but with reviewing it with pt, she stated she has not had any dizziness or nausea problems. With the evaluation, she did not report any dizziness with the testing; Reyes balance score of 51/56, unsteady with walking and head motions and decreased ability for single leg standing and tandem standing. Her sitting BP at rest was 171/ 65 and after balance activities, in standing position was 146/69. Skilled PT services are indicated for retraining of vestibular system and dynamic balance to improve safety with mobility and education for safety and HEP. Plan of Care Interventions Neuro Re-education,Patient/Caregiver Education,
--- NOTE | 2023-12-07 14:55 | PTOPDC ---
Assessment and note entered by Jesisca Wynne, PT Discharge Report Assessment Status Discharge - Pt Not Present ICD-10 Condition Codes (PT) Dizziness & Giddiness R42 Onset 10-24-23 Subjective Information pt called on Dec 03 and canceled all of her appointments, stated her was ill and she could not attend therapy. Assessment PT Clinical Summary Ava received 3 PT sessions for gait/ balance and vestibular issues. She called and canceled therapy due to her being ill. Discharge PT per pt request. The goals were not addressed. Plan of Care PT Services Indicated No
== END 2023-12-08 09:34 | disposition home or self-care (01) ==
LOC: ANHPT 10:30
PROVIDERS: PCP Family Medicine; Visit Provider Nurse Practitioner Family
DX: R42 Dizziness and giddiness (principal)
CPT/HCPCS: 97110; 97112; 97161; 97530

== ENCOUNTER 2023-12-12 13:30 | Emergency (ER) | payer OTHER, SELFPAY ==
[2023-12-12 13:42] VITALS: BP 156/78; PULSE 90; RESP 16; TEMP 36.8; O2SAT 98
[2023-12-12 13:48] VITALS: BP 156/78; PULSE 90; RESP 16; TEMP 36.8; O2SAT 98
--- NOTE | 2023-12-12 14:00 | ED.URI ---
HPI - URI/Sore Throat General Chief Complaint: Upper Respiratory Infection Stated Complaint: Sinus Time Seen by Provider: 12/12/23 14:00 Source: patient, RN notes reviewed and old records reviewed Mode of arrival: ambulatory Limitations: no limitations History of Present Illness HPI Narrative: Patient presents with complaints of 3 weeks of sinus pain and pressure, particularly right-sided. Also has some right ear pain. Denies any fever. Does affirm postnasal drainage, associated sore throat, tiredness. She has tried multiple home remedies for relief, says that she is now beginning to feel worse instead of better. Denies fever, chills, sweats. Denies any injury or trauma Related Data Home Medications Medication Instructions Recorded Confirmed multivitamin (Daily Multi-Vitamin 1 tablet PO DAILY 07/02/20 12/12/23 tablet) acetaminophen 325 mg tablet 325 mg PO Q6H PRN GUTIERREZ BA 02/07/22 12/12/23 (Tylenol) vitamin E 200 unit capsule 200 unit PO DAILY PRN Headache 08/04/22 12/12/23 Allergies Allergy/AdvReac Type Severity Reaction Status Date / Time meperidine AdvReac Unknown Nausea and Verified 12/12/23 13:37 Vomiting Review of Systems Review of Systems: All systems reviewed & are unremarkable except as noted in HPI and below Constitutional: Constitutional: Reports no additional constitutional complaints ENT: Reports system reviewed and no additional complaints, except as documented, Reports otalgia, Reports nasal discharge, Reports sinus pain and Reports sinus pressure Cardiovascular: Cardiovascular: Reports no additional cardiovascular complaints Respiratory: Respiratory: Reports no additional respiratory complaints and Reports cough Gastrointestinal: Gastrointestinal: Reports no additional gastrointestinal complaints [facility] Past Medical History Medical History (Updated 12/20/23 @ 18:41 by Tawana Starks APRN) Chronic right shoulder pain Dyslipidemia Essential hypertension Post-menopausal bleeding Prediabetes Vertigo Vomiting Surgical History Surgical History History of ankle surgery (~1999) Left - ORIF of left ankle fracture History of cataract surgery (~10/2021) b/l S/P excision of lipoma (~04/2012) Mid back Family History Family History Sibling Hypertension Mother Cerebrovascular accident Family history of thyroid disease Hypertension Patient's mother is Father Family history of dementia Hypertension Patient's father is Family history of cardiovascular disease Family history of Alzheimer's disease Family history of hearing loss Family history of heart disease in male family member before age 55 Social History Social History Smoking status: Never smoker Second hand tobacco smoke exposure: No Alcohol intake: current Alcohol use details: socially Substance use: never Substance use type: does not use Lack of Transportation: No Lack of Food: Never True Current Housing: I Have Housing Concerned About Future Housing: No Difficulty Paying Gas/Electric Bills: No Difficulty Paying for Meds: No Currently Unemployed: No Education: Trade/Vocational Certificate Difficulty w/ Childcare or Family Care: Decline to Answer Living arrangements: with family Additional living arrangements comments: Occupation/Education: retired Gender identity (if verbalized by the patient): Female Sexual Orientation (if Verbalized by the Patient): Straight or Heterosexual Agree to blood products: Yes Comments At the time of my signature, I reviewed and agree with the nursing past medical, surgical, social, and family history. There is no relevant family history pertinent to the patient complaint. Exam Const: General: cooperative, no acute distress, alert and awake Orie
== END 2023-12-12 14:15 | disposition home or self-care (01) ==
PROVIDERS: Emergency Provider Nurse Practitioner Family; PCP Family Medicine
DX: H66.91 Otitis media, unspecified, right ear (principal); I10 Essential (primary) hypertension; E78.5 Hyperlipidemia, unspecified; R73.03 Prediabetes
CPT/HCPCS: 99213; G0463

== ENCOUNTER 2024-01-31 08:40 | Outpatient (CLI) | payer OTHER, SELFPAY ==
[2024-01-31 09:19] LABS: Basophils Percent Auto 0.4 % (0.2-1.2); Eosinophils Absolute Auto 0.1 K/mm3 (0-0.3); Eosinophils Percent Auto 2.5 % (0-4.4); Hemoglobin 12.8 g/dL (12.0-15.0); Immature Granulocyte Absolute 0.02 K/mm3 (0.00-0.031); Immature Granulocyte Percent A 0.4 % (0-0.5); Lymphocytes Absolute Auto 1.17 K/mm3 (0.9-3.2); Lymphocytes Percent Auto 22.4 % (18.3-44.2); Mean Corpuscular Hemoglobin 28.1 pg (26-34); Mean Corpuscular Volume 87.9 fl (80-100); Monocytes Absolute Auto 0.6 K/mm3 (0.1-0.6); Monocytes Percent Auto 11.5 % (2.6-8.5); Neutrophils Absolute Auto 3.3 K/mm3 (1.3-6.7); Neutrophils Percent Auto 62.8 % (45.5-73.1); Platelet Count Result 171 k/mm3 (150-375); Red Blood Count 4.55 M/mm3 (4.2-5.4); Red Cell Distribution Width 14.2 % (11.5-14.5); White Blood Count 5.2 K/mm3 (4.5-10.0)
[2024-01-31 09:52] LABS: Alanine Aminotransferase 20 U/L (6-35); Albumin Level 4.6 g/dL (3.5-5.1); Alkaline Phosphatase 82 U/L (38-126); Anion Gap 4 mmol/L (4-12); Aspartate Amino Transferase 31 U/L (14-36); Bilirubin,Total 0.9 mg/dL (0.2-1.3); Blood Urea Nitrogen 18 mg/dL (7-17); Calcium 9.5 mg/dL (8.4-10.2); Carbon Dioxide 33 mmol/L (22-30); Chloride 103 mmol/L (98-107); Estimated Glomerular Filt Rate 60; Glucose 101 mg/dL (65-110); Potassium 4.1 mmol/L (3.4-5.0); Sodium 140 mmol/L (137-145)
== END 2024-01-31 08:41 | disposition home or self-care (01) ==
PROVIDERS: PCP Family Medicine; Visit Provider Nurse Practitioner Family
DX: R11.10 Vomiting, unspecified (principal); R42 Dizziness and giddiness; E78.5 Hyperlipidemia, unspecified; I10 Essential (primary) hypertension; E66.9 Obesity, unspecified
CPT/HCPCS: 36415; 80053; 85025

== ENCOUNTER 2024-02-05 11:18 | Outpatient (CLI) | payer OTHER, SELFPAY ==
[2024-02-05 20:19] LABS: Hemoglobin A1C 6.1 % (<5.7)
[2024-02-05 21:00] LABS: Vitamin D 25 Hydroxy 42.6 ng/mL
== END 2024-02-05 11:19 | disposition home or self-care (01) ==
LOC: ANHGOSHLAB 11:19
PROVIDERS: PCP Family Medicine; Visit Provider Family Medicine
DX: R73.03 Prediabetes (principal); E55.9 Vitamin D deficiency, unspecified
CPT/HCPCS: 36415; 82306; 83036

== ENCOUNTER 2024-08-02 10:36 | Emergency (ER) | payer OTHER, SELFPAY ==
--- NOTE | ~2024-08-02 | XR_ITS ---
EXAMINATION: XR elbow RT min 3V DATE: 08/02/2024 11:17 INDICATION: Right elbow pain post fall TECHNIQUE: Anteroposterior, two oblique and lateral views of the right elbow were obtained. COMPARISON: None. FINDINGS: Alignment is normal. No fracture or joint effusion. Joint spaces are normal. Tiny enthesopathic ossic le at the olecranon insertion of the distal triceps tendon. Soft tissues are unremarkable. IMPRESSION: 1. No right elbow joint effusion or acute osseous abnormality. Reviewed, dictated and finalized at location A.
--- NOTE | ~2024-08-02 | XR_ITS ---
XR wrist RT min 3V 08/02/2024 11:18 Indication: Right wrist pain after fall Procedure: 4 views right wrist Comparison: 10/21/2015 Findings: Osteopenia. No fracture, subluxation or dislocation. No focal soft tissue abnormality. No f oreign bodies. Impression: 1: No acute fracture. Reviewed, dictated and finalized at location A. Impression: 1: No acute fracture.
--- NOTE | 2024-08-02 10:39 | ED.FALL ---
HPI - Fall General Chief Complaint: Extremity Injury, Upper Stated Complaint: FALL Time Seen by Provider: 08/02/24 11:35 Source: patient, RN notes reviewed and old records reviewed Mode of arrival: ambulatory Limitations: no limitations History of Present Illness HPI Narrative: 84-year-old female presents to the [facility] with complaints of right wrist and right elbow discomfort after falling yesterday at 10:30 a.m.. States that she was walking up concrete steps and 1 of the steps was uneven, fell to the ground when she lost her balance. Abrasion noted to the elbow, swelling noted to the right wrist generalized. Related Data Home Medications ?Medication ?Instructions ?Recorded ?Confirmed ?Last Taken ?Type multivitamin (Daily Multi-Vitamin 1 tablet PO DAILY 07/02/20 02/05/24 Unknown History tablet) acetaminophen 325 mg tablet 325 mg PO Q6H PRN GUTIERREZ BA 02/07/22 02/05/24 Unknown History (Tylenol) vitamin E 200 unit capsule 200 unit PO DAILY PRN Headache 08/04/22 02/05/24 Unknown History Allergies Allergy/AdvReac Type Severity Reaction Status Date / Time meperidine AdvReac Unknown Nausea and Verified 08/02/24 11:06 Vomiting Review of Systems Review of Systems: All systems reviewed & are unremarkable except as noted in HPI and below Constitutional: Constitutional: Reports no additional constitutional complaints ENT: Reports system reviewed and no additional complaints, except as documented Cardiovascular: Cardiovascular: Reports no additional cardiovascular complaints, Denies chest pain and Denies dyspnea Respiratory: Respiratory: Reports no additional respiratory complaints, Denies chest congestion, Denies cough and Denies dyspnea Musculoskeletal: Musculoskeletal: Reports as per HPI, Reports arthralgias and Reports joint swelling Integumentary/Breasts: Skin/Breast: Reports system reviewed and no additional complaints, except as docu PMFSH Past Medical History Medical History Chronic venous insufficiency of lower extremity Vomiting Vertigo Chronic right shoulder pain Prediabetes Essential hypertension Post-menopausal bleeding Dyslipidemia Surgical History Surgical History S/P excision of lipoma (~04/2012) Mid back History of cataract surgery (~10/2021) b/l History of ankle surgery (~1999) Left - ORIF of left ankle fracture Family History Family History Sibling Hypertension Mother Cerebrovascular accident Family history of thyroid disease Hypertension Patient's mother is Father Family history of dementia Hypertension Patient's father is Family history of cardiovascular disease Family history of Alzheimer's disease Family history of hearing loss Family history of heart disease in male family member before age 55 Social History Social History Smoking status: Never smoker Second hand tobacco smoke exposure: No Alcohol intake: current Alcohol use details: socially Substance use: never Substance use type: does not use Lack of Transportation: No Lack of Food: Never True Current Housing: I Have Housing Concerned About Future Housing: No Difficulty Paying Gas/Electric Bills: No Difficulty Paying for Meds: No Currently Unemployed: No Education: Trade/Vocational Certificate Difficulty w/ Childcare or Family Care: Decline to Answer Living arrangements: with family Additional living arrangements comments: Occupation/Education: retired Gender identity (if verbalized by the patient): Female Sexual Orientation (if Verbalized by the Patient): Straight or Heterosexual Agree to blood products: Yes Comments At the time of my signature, I reviewed and agree with the nursing past medical, surgical, social, and family history. There is no relevant family history pertinent to the patient complaint. Exam Const: General: cooperative, healthy appearing, comfortable, no acute distress, well developed, alert and well nourished Nutritional Appearance: well nourished Orientation/consciousness: patient oriented x3 Limitations: no limitations HENMT: Head: normal to inspection Eyes: General: appearance normal, both eyes and all related structures Alignment and Position: alignment normal Neck: Neck: normal visual inspection, full ROM, no lymphadenopathy and no meningeal signs Chest: Chest palpation & inspection: normal inspection of the chest Resp: Effort & Inspection: normal respiratory effort and able to speak in complete sentences Cardio: Rate: regular rate Skin: General skin exam: normal color and no rashes or lesions noted Other: Abrasion right Neuro: General: patient oriented x3, gait normal, moves all extremities and no meningeal signs Cognition (Neuro): normal cognition Speech: normal speech Gait exam (Neuro): Normal gait present Extrem: General: normal to inspection, full ROM, capillary refill normal and normal gait Right upper extremity: elbow/forearm normal ROM and abrasion; no swelling, wrist tenderness, swelling, normal ROM, normal vascular exam and radial pulse present; no ecchymosis and Extremity exam: right hand neuromotor exam normal wrist extension normal, thumb opposition normal, thumb IP flexion normal, thumb ADduction normal and fingers 2-5 ABduction normal Psych: Appearance: grossly normal and well kempt Mental Status: mental status grossly normal Speech and movement: Normal speech and movement present and Clear speech present Affect: normal affect Attitude: cooperative Course Course Level of Care: Express Care Visit Vital Signs Vital signs: Vital Signs Temperature 98.4 F 08/02/24 10:55 Pulse Rate 73 08/02/24 10:55 Respiratory Rate 16 08/02/24 10:55 Blood Pressure 149/64 H 08/02/24 10:55 Pulse Oximetry 98 08/02/24 10:55 Oxygen Delivery Room Air 08/02/24 10:55 Temperature 98.4 F 08/02/24 10:55 Pulse Rate 73 08/02/24 10:55 Respiratory Rate 16 08/02/24 10:55 Blood Pressure 149/64 H 08/02/24 10:55 Pulse Oximetry 98 08/02/24 10:55 Oxygen Delivery Room Air 08/02/24 10:55 Reviewed MDM - Fall MDM Narrative Medical decision making narrative: Patient sitting in exam. Patient is nontoxic, vitals are stable patient presents with elbow and wrist pain after falling yesterday. X-ray negative. Goyo wrap applied to wrist. With abrasion of the elbow is clean Patient appropriate for outpatient treatment with close follow-up Discharge instructions reviewed with patient, as well as provided in writing per nursing staff. The instructions also include specific and strict return/GO TO THE ER as well as f/u information. All questions have been answered, and the patient deny any further questions with discharge and discharge plan. Some parts of this dictation were generated by voice recognition software and may contain typographical and/or grammatical inaccuracies. Differential Diagnosis Differential diagnosis: Likely fracture of wrist and other (Contusion, sprain) Imaging Data Radiologist's impression: XR wrist RT min 3V 08/02/2024 11:18 Indication: Right wrist pain after fall Procedure: 4 views right wrist Comparison: 10/21/2015 Findings: Osteopenia. No fracture, subluxation or dislocation. No focal soft tissue abnormality. No foreign bodies. Impression: 1: No acute fracture. EXAMINATION: XR elbow RT min 3V DATE: 08/02/2024 11:17 INDICATION: Right elbow pain post fall TECHNIQUE: Anteroposterior, two oblique and lateral views of the right elbow were obtained. COMPARISON: None. FINDINGS: Alignment is normal. No fracture or joint effusion. Joint spaces are normal. Tiny enthesopathic ossicle at the olecranon insertion of the distal triceps tendon. Soft tissues are unremarkable. IMPRESSION: 1. No right elbow joint effusion or acute osseous abnormality. Critical Care Time Critical Care Time Critical Care Time: No Discharge Plan Discharge Clinical Impression: Contusion of elbow, right, Right wrist sprain Abrasion of elbow Qualifiers: Encounter type: initial encounter Laterality: right Qualified Code(s): S50.311A - Abrasion of right elbow, initial encounter Patient Disposition: Home Condition: Stable Instructions: Antibiotic Form Additional Instructions: Your Xray did not show a fracture. Ice should be applied to help reduce swelling. It can be used for 20 to 30 minutes, every 2-3 hours while awake. Do not apply ice directly to your skin. You can take Tylenol 650mg every 8 hours as needed for pain Please schedule a follow-up visit with your personal physician for further evaluation and treatment within 2 weeks especially if symptoms persist. For new or worsening symptoms go directly to the emergency room Patient Language: Uzbek Prescriptions: No Action multivitamin [Daily Multi-Vitamin] Tablet 1 tablet PO DAILY vitamin E 200 unit capsule 200 unit PO DAILY PRN (Reason: Headache) cholecalciferol (vitamin D3) 50 mcg (2,000 unit) tablet 50 mcg PO DAILY Qty: 90 2RF meclizine 25 mg tablet 25 mg PO .6-8hrs Qty: 30 2RF acetaminophen [Tylenol] 325 mg tablet 325 mg PO Q6H PRN (Reason: GUTIERREZ BA) metformin 500 mg tablet 500 mg PO DAILY Qty: 180 1RF amlodipine 5 mg tablet 5 mg PO QPM Qty: 90 1RF metoprolol succinate 100 mg tablet extended release 24 hr 100 mg PO DAILY Qty: 90 1RF rosuvastatin 10 mg tablet 10 mg PO QHS Qty: 90 1RF potassium chloride 8 mEq capsule, extended release See Rx Instructions .ROUTE .COMPLEX Qty: 90 1RF Dose Instruction: TAKE 1 CAPSULE BY MOUTH EVERY DAY WITH BREAKFAST Rx Instructions: TAKE 1 CAPSULE BY MOUTH EVERY DAY WITH BREAKFAST citalopram 10 mg tablet See Rx Instructions .ROUTE .COMPLEX Qty: 90 1RF Dose Instruction: TAKE 1 TABLET BY MOUTH EVERY DAY Rx Instructions: TAKE 1 TABLET BY MOUTH EVERY DAY losartan-hydrochlorothiazide 100-25 mg tablet See Rx Instructions .ROUTE .COMPLEX Qty: 90 1RF Dose Instruction: TAKE 1 TABLET BY MOUTH EVERY MORNING Rx Instructions: TAKE 1 TABLET BY MOUTH EVERY MORNING Follow-up/Referrals: Lyly Dunlap MD [Primary Care Provider] - 1 Week ([facility] follow-up) Time of Disposition: 11:51
[2024-08-02 10:55] VITALS: BP 149/64; PULSE 73; RESP 16; TEMP 36.9; O2SAT 98
== END 2024-08-02 12:00 | disposition home or self-care (01) ==
PROVIDERS: Emergency Provider Nurse Practitioner; PCP Family Medicine
DX: S50.01XA Contusion of right elbow, initial encounter (principal); S63.501A Unspecified sprain of right wrist, initial encounter; S50.311A Abrasion of right elbow, initial encounter; W10.9XXA Fall (on) (from) unspecified stairs and steps, initial encounter; I10 Essential (primary) hypertension; E78.5 Hyperlipidemia, unspecified; R73.03 Prediabetes
CPT/HCPCS: 73080; 73110; 99214; G0463

== ENCOUNTER 2024-08-07 07:56 | Outpatient (CLI) | payer OTHER, SELFPAY ==
--- OUTSIDE RECORDS SUMMARY | 2024-08-07 08:04 | XMS_ITS | Encounter Summary ---
Author Organization [facility] Address 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
--- OUTSIDE RECORDS SUMMARY | 2024-08-07 08:04 | XMS_ITS | Encounter Summary ---
Author Organization [facility] Address 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
--- OUTSIDE RECORDS SUMMARY | 2024-08-07 08:04 | XMS_ITS | Encounter Summary ---
Author Organization [facility] Address [address] [place] [address] Care Team Providers Care External Auditor Name Role Phone Richi Lee MD Primary Care Provider Unavailable Encounter Details Date Type Department Care Team (Latest Contact Info) Description 09/08/[address] 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
--- OUTSIDE RECORDS SUMMARY | 2024-08-07 08:04 | XMS_ITS | Encounter Summary ---
Author Organization 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
--- OUTSIDE RECORDS SUMMARY | 2024-08-07 08:04 | XMS_ITS | Encounter Summary ---
Author Organization [facility] Address [address] Attn: Epic Prelude ADT BERTA RODRIGUEZ [phone] Care Team Providers Care Environmental Technical Officer Name Role Phone Richi Lee MD Primary Care Provider Unavailable Encounter Details Date Type Department Care Team (Late st Contact Info) Description 11/19/1996 Outpatient Historical Conversion, History Richi Lee MD NO ADDRESS ON FILE Social History Tobacco Use Types Packs/Day Years Used Date Smoking Tobacco: Never Assessed Comments Unknown Sex and Gender Information Value Date Recorded Sex Assigned at Not on file 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
--- OUTSIDE RECORDS SUMMARY | 2024-08-07 08:05 | XMS_ITS | Encounter Summary ---
Author Organization [facility] Address [address] [place] [address] Care Team Providers Care Dye Weigher Name Role Phone Richi Lee MD Primary Care Provider Unavailable Encounter Details Date Type Department Care Team (Latest Contact Info) Description 09/03/2004 Outpatient Historical HIS 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 Gender Identity Not on file Sexual Orientation Not on file documented as of this encounter Plan of Treatment Not on file documented as of this encounter Procedures Procedure Name Priority Date/Time Associated Diagnosis Comments TSH Routine 09/03/2004 11:46 AM CDT LIPID PANEL Routine 09/03/2004 11:46 AM CDT COMPREHENSIVE METABOLIC PANEL Routine 09/03/2004 11:46 AM CDT documented in this encounter Results * TSH (09/03/2004 11:46 AM CDT) TSH 2.29 0.27 - 4.20 uU/mL INTERFACE SYSTEM 09/03/2004 11:4 6 AM CDT us Richi Lee MD CHEMISTRY ORDERABLES Fi nal Result INTERFACE SYSTEM Refer to clinic/hospital department * (ABNORMAL) LIPID PANEL (09/03/2004 11:46 AM CDT) CHOLESTEROL 214(H) 100 - 199 mg/dL INTERFACE SYSTEM TRIGLYCERIDE 127 10 - 149 mg/dL INTERFACE SYSTEM HDL 54 40 - 59 mg/dL INTERFACE SYSTEM LDL CALCULATED 135(H) <=99 mg/dL INTERFACE SYSTEM CHOL/HDL RATIO 4.0 2.0 - 5.0 INTER FACE SYSTEM Comment:See interpretive constanza a section for risk classifications. LIPID PANEL COMMENT See below INTERFACE SYSTEM Comment: Adult ATP III Classifications: Cholesterol (mg/dL) Triglyceride (mg/dL) Desirable <200 Normal <150 Borderline 200 - 239 Borderline High 150 - 199 High >=240 High 200 - 499 Very High >=500 HDL Cholesterol (mg/dL) LDL (mg/dL) Low (increased risk) <40 Optimal <100 High (reduced risk) >=60 Near or above optimal 100 - 129 Borderline 130 - 159 High 160 - 189 Very High >=190 LDL calculation is not accurate if Triglycerides are greater than 400 mg /dL Pediatric NCEP Classifications: Cholesterol(<20 years),(mg/dL) Triglyceride Desirable <170 Pediatric classification Borderline 170 - 199 not defined. High >=200 HDL (<5 years) LDL (mg/dL) No Reference Range Established Desirable <110 Borderline 110 - 129 High >=130 09/03/2004 11:4 6 AM CDT us Richi Lee MD CHEMISTRY ORDERABLES Fi nal Result INTERFACE SYSTEM Refer to clinic/hospital department * COMPREHENSIVE METABOLIC PANEL (09/03/2004 11:46 AM CDT) GLUCOSE 106 65 - 109 mg/dL INTERFACE SYSTEM CREATININE 0.9 0.4 - 1.2 mg/dL INTERFACE SYSTEM AST 21 12 - 32 U/L INTERFACE SYSTEM ALKALINE PHOSPHATASE 89 35 - 104 U/L INTERFACE SYSTEM BUN 15 6 - 20 mg/dL INTERFACE SYSTEM BILIRUBIN TOTAL 0.5 0.2 - 1.0 mg/dL INTERFACE SYSTEM ALBUMIN 4.4 3.4 - 4.8 g/dL INTERFACE SYSTEM TOTAL PROTEIN 7.9 6.3 - 8.6 g/dL INTERFACE SYSTEM ALT 23 0 - 31 U/L INTERFACE SYSTEM SODIUM 140 135 - 145 mmol/L INTERFACE SYSTEM POTASSIUM 4.0 3.5 - 4.9 mmol/L INTERFACE SYSTEM CHLORIDE 101 96 - 108 mmol/L INTERFACE SYSTEM CO2 27 22 - 30 mmol/L INTERFACE SYSTEM CALCIUM 9.9 8.6 - 10.2 mg/dL INTERFACE SYSTEM 09/03/2004 11:4 6 AM CDT us Richi Lee MD CHEMISTRY ORDERABLES Fi nal Result INTERFACE SYSTEM Refer to clinic/hospital department documented in this encounter Visit Diagnoses Diagnosis Routine general medical examination at a health care facility- Primary documented in this encounter Care Teams Dye Weigher Relationship Specialty Start Date End Date Richi Lee MD PCP - General 12/01/99 documented as of this encounter
--- OUTSIDE RECORDS SUMMARY | 2024-08-07 08:05 | XMS_ITS | Encounter Summary ---
Author Organization [facility] Address [address] Attn: Epic Prelude ADT BERTA RODRIGUEZ [address] Care Team Providers Care Outer Diameter Grinder Name Role Phone Richi Lee MD Primary Care Provider Unavailable Encounter Details Date Type Department Care Team (Late st Contact Info) Description 01/26/1998 Outpatient Historical Richi Lee MD NO ADDRESS ON FILE Social History Tobacco Use Types Packs/Day Years Used Date Smoking Tobacco: Never Assessed Comments Unknown Sex and Gender Information Value Date Recorded Sex Assigned at Not on file Legal Sex Female 4:07 AM SUPPLY CHAIN CONSULTANT Gender Identity Not on file Sexual Orientation Not on file documented as of this encounter Plan of Treatment Not on file documented as of this encounter Visit Diagnoses Not on filedocumented in this encounter Care Teams Outer Diameter Grinder Relationship Specialty Start Date End Date Richi Lee MD PCP - General 12/01/99 documented as of this encounter
--- OUTSIDE RECORDS SUMMARY | 2024-08-07 08:05 | XMS_ITS | Encounter Summary ---
Author Organization [facility] Address [address] [place] [address] Care Team Providers Care Gaming Cage Worker Name Role Phone Richi Lee MD Primary Care Provider Unavailable Encounter Details Date Type Department Care Team (Late st Contact Info) Description 11/30/1998 Outpatient Historical HIS [facility],NON-PATIENT Richi Lee MD NO ADDRESS ON FILE Social History Tobacco Use Types Packs/Day Years Used Date Smoking Tobacco: Never Assessed Comments Unknown Sex and Gender Information Value Date Recorded Sex Assigned at Not on file Legal Sex Female 4:07 AM MANAGER EQUIPMENT Gender Identity Not on file Sexual Orientation Not on file documented as of this encounter Plan of Treatment Not on file documented as of this encounter Visit Diagnoses Not on filedocumented in this encounter Care Teams Gaming Cage Worker Relationship Specialty Start Date End Date Richi Lee MD PCP - General 12/01/99 documented as of this encounter
--- OUTSIDE RECORDS SUMMARY | 2024-08-07 08:05 | XMS_ITS | Clinical Summary ---
Author Organization [facility] Address [address] [facility] Attn: Epic Prelude ADT BERTA RODRIGUEZ [address] Care Team Providers Care Insurance Verification Clerk Name Role Phone Richi Lee MD Primary Care Provider Unavailable Immunizations Immunization Administration Dates Next Due Influenza Seasonal Unspecified Formulation IM Social History Tobacco Use Types Packs/Day Years Used Date Smoking Tobacco: Never Assessed Comments Unknown Sex and Gender Information Value Date Recorded Sex Assigned at Not on file Legal Sex Female 4:07 AM TERRITORY SALES CONSULTANT Gender Identity Not on file Sexual Orientation Not on file Plan of Treatment Health Maintenance Due Date Last Done Comments DTAP/TDAP/TD VACCINES (1 - Tdap) 1961 PNEUMOCOCCAL VACCINE 50+ YEARS (1 of 1 - PCV) 05/19/18 93 ZOSTER VACCINE (1 of 2) 1992 OSTEOPOROSIS SCREENING 05/20/2007 RSV VACCINE (60+ or ) (1 - 1-dose 75+ series) 2017 INFLUENZA VACCINE (#1) 2023 12/13/2012 Care Teams Insurance Verification Clerk Relationship Specialty Start Date End Date Richi Lee MD PCP - General 12/01/99
--- OUTSIDE RECORDS SUMMARY | 2024-08-07 08:05 | XMS_ITS | Encounter Summary ---
Author Organization [facility] Address [address] [place] [address] Care Team Providers Care Internet Marketing Consultant Name Role Phone Richi Lee MD Primary Care Provider Unavailable Encounter Details Date Type Department Care Team (Late st Contact Info) Description 12/07/1998 Outpatient Historical [facility] Richi Lee MD NO ADDRESS ON FILE Abdominal pain, unspecified site (Primary Dx) Social History Tobacco Use Types Packs/Day Years Used Date Smoking Tobacco: Never Assessed Comments Unknown Sex and Gender Information Value Date Recorded Sex Assigned at Not on file Legal Sex Female 4:07 AM DIRECTOR OF MANAGED CARE Gender Identity Not on file Sexual Orientation Not on file documented as of this encounter Plan of Treatment Not on file documented as of this encounter Visit Diagnoses Diagnosis Abdominal pain, unspecified site- Primary documented in this encounter Care Teams Internet Marketing Consultant Relationship Specialty Start Date End Date Richi Lee MD PCP - General 12/01/99 documented as of this encounter
--- OUTSIDE RECORDS SUMMARY | 2024-08-07 08:05 | XMS_ITS | Encounter Summary ---
Author Organization [facility] Address [address] [place] [address] Care Team Providers Care Grant Writer Name Role Phone Richi Lee MD Primary Care Provider Unavailable Encounter Details Date Type Department Care Team (Latest Contact Info) Description 01/06/2005 Outpatient Historical HIS [facility] Richi Velez MD NO ADDRESS ON FILE HYPERLIPIDEMIA NEC/NOS (Primary Dx) Social History Tobacco Use Types Packs/Day Years Used Date Smoking Tobacco: Never Assessed Comments Unknown Sex and Gender Information Value Date Recorded Sex Assigned at Not on file Legal Sex Female 4:07 AM SISTER SUPERIOR Gender Identity Not on file Sexual Orientation Not on file documented as of this encounter Plan of Treatment Not on file documented as of this encounter Procedures Procedure Name Priority Date/Time Associated Diagnosis Comments LIPID PANEL Routine 01/06/2005 11:57 AM SISTER SUPERIOR COMPREHENSIVE METABOLIC PANEL Routine 01/06/2005 11:57 AM SISTER SUPERIOR documented in this encounter Results * (ABNORMAL) LIPID PANEL (01/06/2005 11:57 AM SISTER SUPERIOR) CHOLESTEROL 162 100 - 199 mg/dL INTERFACE SYSTEM TRIGLYCERIDE 78 10 - 149 mg/dL INTERFACE SYSTEM HDL 60(H) 40 - 59 mg/dL INTERFACE SYSTEM LDL CALCULATED 86 <=99 mg/dL INTERFACE SYSTEM CHOL/HDL RATIO 2.7 2.0 - 5.0 INTER FACE SYSTEM Comment:See [...] <110 Borderline 110 - 129 High >=130 01/06/2005 11:5 7 AM SISTER SUPERIOR Richi Lee MD CHEMISTRY ORDERABLES Fi nal Result Performing Organization Address City/[facility] de Phone Number INTERFACE SYSTEM Refer to clinic/hospital department * COMPREHENSIVE METABOLIC PANEL (01/06/2005 11:57 AM SISTER SUPERIOR) GLUCOSE 100 65 - 109 mg/dL INTERFACE SYSTEM CREATININE 0.8 0.4 - 1.2 mg/dL INTERFACE SYSTEM CALCIUM 9.5 8.6 - 10.2 mg/dL INTERFACE SYSTEM AST 23 12 - 32 U/L INTERFACE SYSTEM ALKALINE PHOSPHATASE 90 35 - 104 U/L INTERFACE SYSTEM BUN 20 6 - 20 mg/dL INTERFACE SYSTEM BILIRUBIN TOTAL 0.5 0.2 - 1.0 mg/dL INTERFACE SYSTEM ALBUMIN 4.6 3.4 - 4.8 g/dL INTERFACE SYSTEM TOTAL PROTEIN 7.6 6.3 - 8.6 g/dL INTERFACE SYSTEM ALT 24 0 - 31 U/L INTERFACE SYSTEM SODIUM 143 135 - 145 mmol/L INTERFACE SYSTEM POTASSIUM 4.0 3.5 - 4.9 mmol/L INTERFACE SYSTEM CHLORIDE 106 96 - 108 mmol/L INTERFACE SYSTEM CO2 28 22 - 30 mmol/L INTERFACE SYSTEM 01/06/2005 11:5 7 AM SISTER SUPERIOR us Richi Lee MD CHEMISTRY ORDERABLES Fi nal Result INTERFACE SYSTEM Refer to clinic/hospital department documented in this encounter Visit Diagnoses Diagnosis Other and unspecified hyperlipidemia- Primary documented in this encounter Care Teams Grant Writer Relationship Specialty Start Date End Date Richi Lee MD PCP - General 12/01/99 documented as of this encounter
--- OUTSIDE RECORDS SUMMARY | 2024-08-07 08:05 | XMS_ITS | Encounter Summary ---
Author Organization [facility] Address [address] [place] [address] Care Team Providers Care Rolled Gold Plater Name Role Phone Richi Lee MD Primary Care Provider Unavailable Encounter Details Date Type Department Care Team (Late st Contact Info) Description 08/02/1999 Outpatient Historical [facility],NON-PATIENT Richi Lee MD NO ADDRESS ON FILE Social History Tobacco Use Types Packs/Day Years Used Date Smoking Tobacco: Never Assessed Comments Unknown Sex and Gender Information Value Date Recorded Sex Assigned at Not on file Legal Sex Female 4:07 AM DESKTOP SUPPORT SPECIALIST Gender Identity Not on file Sexual Orientation Not on file documented as of this encounter Plan of Treatment Not on file documented as of this encounter Visit Diagnoses Not on filedocumented in this encounter Care Teams Rolled Gold Plater Relationship Specialty Start Date End Date Richi Lee MD PCP - General 12/01/99 documented as of this encounter
--- OUTSIDE RECORDS SUMMARY | 2024-08-07 08:05 | XMS_ITS | Encounter Summary ---
Author Organization [employer] Address [address] [place] [address] Care Team Providers Care Wire Bender Name Role Phone Richi Lee MD Primary Care Provider Unavailable Encounter Details Date Type Department Care Team (Latest Contact Info) Description 12/23/1999 Outpatient Historical [facility] Richi Lee MD NO ADDRESS ON FILE Type II or unspecified type diabetes mellitus without mention of complication, not stated as uncontrolled (Primary Dx) Social History Tobacco Use Types Packs/Day Years Used Date Smoking Tobacco: Never Assessed Comments Unknown Sex and Gender Information Value Date Recorded Sex Assigned at Not on file Legal Sex Female 4:07 AM EXPLOSION WELDER Gender Identity Not on file Sexual Orientation Not on file documented as of this encounter Plan of Treatment Not on file documented as of this encounter Visit Diagnoses Diagnosis Type II or unspecified type diabetes mellitus without mention of complication, not stated as uncontrolled- Primary documented in this encounter Care Teams Wire Bender Relationship Specialty Start Date End Date Richi Lee MD PCP - General 12/01/99 documented as of this encounter
--- OUTSIDE RECORDS SUMMARY | 2024-08-07 08:05 | XMS_ITS | Encounter Summary ---
Author Organization [facility] Address [address] [place] [address] Care Team Providers Care Ror Engineer Name Role Phone Richi Lee MD Primary Care Provider Unavailable Encounter Details Date Type Department Care Team (Latest Contact Info) Description 01/05/2006 Outpatient Historical HIS [facility] Richi Velez MD NO ADDRESS ON FILE Unspecified Essential Hypertension (Primary Dx) Social History Tobacco Use Types Packs/Day Years Used Date Smoking Tobacco: Never Assessed Comments Unknown Sex and Gender Information Value Date Recorded Sex Assigned at Not on file Legal Sex Female 4:07 AM CASE SUPERVISOR Gender Identity Not on file Sexual Orientation Not on file documented as of this encounter Plan of Treatment Not on file documented as of this encounter Procedures Procedure Name Priority Date/Time Associated Diagnosis Comments CBC WITH DIFFERENTIAL Routine 01/05/2006 11:50 AM CASE SUPERVISOR CBC WITH DIFFERENTIAL Routine 01/05/2006 11:50 AM CASE SUPERVISOR TSH Routine 01/05/2006 11:50 AM CASE SUPERVISOR LIPID PANEL Routine 01/05/2006 11:50 AM CASE SUPERVISOR documented in this encounter Results * CBC WITH DIFFERENTIAL (01/05/2006 11:50 AM CASE SUPERVISOR) NEUTROPHILS 68 45 - 70 % INTERFAC E SYSTEM LYMPHOCYTES 22 16 - 45 % INTERFAC E SYSTEM MONOCYTES 8 3 - 13 % INTERFACE SYSTEM EOSINOPHILS 1 0 - 7 % INTERFAC E SYSTEM BASOPHILS 0 0 - 2 % INTERFACE SYSTEM NEUTROPHIL ABSOLUTE 4.62 1.90 - 7.00 K/uL INTERFACE SYSTEM LYMPHOCYTE ABSOLUTE 1.50 0.70 - 4.50 K/uL INTERFACE SYSTEM MONOCYTE ABSOLUTE 0.57 0.10 - 1.30 K/uL INTERFACE SYSTEM EOSINOPHIL ABSOLUTE 0.05 0.00 - 0.70 K/uL INTERFACE SYSTEM BASOPHILS ABSOLUTE 0.02 0.00 - 0.20 K/uL INTERFACE SYSTEM 01/05/2006 11:5 0 AM CASE SUPERVISOR Richi Lee MD HEMATOLOGY ORDERABLES F inal Result Performing Organization Address City/[facility] de Phone Number INTERFACE SYSTEM Refer to clinic/hospital department * (ABNORMAL) CBC WITH DIFFERENTIAL (01/05/2006 11:50 AM CASE SUPERVISOR) WBC 6.8 4.0 - 9.8 K/uL INTERFACE SYSTEM RBC 5.02(H) 3.90 - 4.90 M/uL INTERFACE SYSTEM HEMOGLOBIN 13.9 11.8 - 14.8 g/dL INTERFACE SYSTEM HEMATOCRIT 40.5 35.5 - 44.0 % INTERFACE SYSTEM MCV 80.7(L) 82.0 - 99.0 fL INTERFACE SYSTEM MCH 27.7 27.2 - 32.6 pg INTERFACE SYSTEM MCHC 34.3 31.5 - 35.5 % INTERFACE SYSTEM RDW 13.9 11.5 - 14.5 % INTERFACE SYSTEM RDW-STDEV 40.8 37.1 - 48.7 fL INTERFACE SYSTEM PLATELETS 206 140 - 350 K/uL INTERFACE SYSTEM MPV 9.5 9.3 - 12.4 fL INTERFACE SYSTEM 01/05/2006 11:5 0 AM CASE SUPERVISOR Richi Lee MD HEMATOLOGY ORDERABLES F inal Result Performing Organization Address City/[facility] de Phone Number INTERFACE SYSTEM Refer to clinic/hospital department * TSH (01/05/2006 11:50 AM CASE SUPERVISOR) TSH 1.68 0.27 - 4.20 uU/mL INTERFACE SYSTEM 01/05/2006 11:5 0 AM CASE SUPERVISOR Richi Lee MD CHEMISTRY ORDERABLES Fi nal Result Performing Organization Address City/[facility] de Phone Number INTERFACE SYSTEM Refer to clinic/hospital department * LIPID PANEL (01/05/2006 11:50 AM CASE SUPERVISOR) CHOLESTEROL 166 100 - 199 mg/dL INTERFACE SYSTEM TRIGLYCERIDE 100 10 - 149 mg/dL INTERFACE SYSTEM HDL 50 40 - 59 mg/dL INTERFACE SYSTEM CHOL/HDL RATIO 3.3 2.0 - 5.0 INTER FACE SYSTEM LDL CALCULATED 96 <=99 mg/dL INTERFACE SYSTEM LIPID PANEL COMMENT See Below INTERFACE SYSTEM Comment: The adult ATP and pediatric NCEP classifications for lipids are available on the [facility] Intranet at: [email or web address] Select: Lab Policies and Procedures Select: Reference Ranges - Lipids 01/05/2006 11:5 0 AM CASE SUPERVISOR us Richi Lee MD CHEMISTRY ORDERABLES Fi nal Result INTERFACE SYSTEM Refer to clinic/hospital department documented in this encounter Visit Diagnoses Diagnosis Unspecified essential hypertension- Primary documented in this encounter Care Teams Ror Engineer Relationship Specialty Start Date End Date Richi Lee MD PCP - General 12/01/99 documented as of this encounter
--- OUTSIDE RECORDS SUMMARY | 2024-08-07 08:05 | XMS_ITS | Encounter Summary ---
Author Organization [facility] Address [address] [place] [address] Care Team Providers Care Puller Out Name Role Phone Richi Lee MD Primary Care Provider Unavailable Encounter Details Date Type Department Care Team (Late st Contact Info) Description 01/04/1999 Outpatient Historical [facility],NON-PATIENT Richi Lee MD NO ADDRESS ON FILE Social History Tobacco Use Types Packs/Day Years Used Date Smoking Tobacco: Never Assessed Comments Unknown Sex and Gender Information Value Date Recorded Sex Assigned at Not on file Legal Sex Female 4:07 AM INGOT CASTER Gender Identity Not on file Sexual Orientation Not on file documented as of this encounter Plan of Treatment Not on file documented as of this encounter Visit Diagnoses Not on filedocumented in this encounter Care Teams Puller Out Relationship Specialty Start Date End Date Richi Lee MD PCP - General 12/01/99 documented as of this encounter
--- OUTSIDE RECORDS SUMMARY | 2024-08-07 08:05 | XMS_ITS | Encounter Summary ---
Author Organization [facility] Address [address] [place] [address] Care Team Providers Care Social Services Analyst Name Role Phone Richi Lee MD Primary Care Provider Unavailable Encounter Details Date Type Department Care Team (Latest Contact Info) Description 06/22/2001 Outpatient Historical HIS [facility] Richi Velez MD NO ADDRESS ON FILE HYPERTENSION NOS (Primary Dx) Social History Tobacco Use Types Packs/Day Years Used Date Smoking Tobacco: Never Assessed Comments Unknown Sex and Gender Information Value Date Recorded Sex Assigned at Not on file Legal Sex Female 4:07 AM SPECIAL EDUCATION TEACHERS Gender Identity Not on file Sexual Orientation Not on file documented as of this encounter Plan of Treatment Not on file documented as of this encounter Visit Diagnoses Diagnosis Unspecified essential hypertension- Primary documented in this encounter Care Teams Social Services Analyst Relationship Specialty Start Date End Date Richi Lee MD PCP - General 12/01/99 documented as of this encounter
--- OUTSIDE RECORDS SUMMARY | 2024-08-07 08:05 | XMS_ITS | Encounter Summary ---
Author Organization [facility] Address [address] [place] [address] Care Team Providers Care Puffer Tender Name Role Phone Richi Lee MD Primary Care Provider Unavailable Encounter Details Date Type Department Care Team (Late st Contact Info) Description 04/05/1999 Outpatient Historical [facility],NON-PATIENT Richi Lee MD NO ADDRESS ON FILE Social History Tobacco Use Types Packs/Day Years Used Date Smoking Tobacco: Never Assessed Comments Unknown Sex and Gender Information Value Date Recorded Sex Assigned at Not on file Legal Sex Female 4:07 AM ACOUSTIC ENGINEER Gender Identity Not on file Sexual Orientation Not on file documented as of this encounter Plan of Treatment Not on file documented as of this encounter Visit Diagnoses Not on filedocumented in this encounter Care Teams Puffer Tender Relationship Specialty Start Date End Date Richi Lee MD PCP - General 12/01/99 documented as of this encounter
--- OUTSIDE RECORDS SUMMARY | 2024-08-07 08:05 | XMS_ITS | Continuity of Care Document ---
Author Organization [facility] Address [address] [place] [address] [address] [place] [address] Phone Care Team Providers Care Cryptologic Linguist Name Role Phone Neo, Primo Unavailable Unavailable Advance Directives Directive Yes / No Effective Date File Name No Information Encounters Encounter Description Practice Location Reason(s) For Visit Diagnoses Date Provider Providers Copied on Encounter [facility], [address], [place], [place], [id number], [place] tel:[phone] No Information [id number] Doisy Edward. [address] , [address], [place], [address], [place]. tel:[phone] Family History Family Member Type Diagnosis Age At Onset No Information Payers Payer name Insurance type Covered alliance party ID Authoriza tion(s) No Information Social History Type Description Quantity Date Captured Comments Sex Female Smoking Status No Information Chief Complaint And Reason For Visit No Information Reason For Referral Reason For Referral No Information History Of Present Illness Encounter Date Complaint History Of Prese nt Illness No Information Functional Status Date Functional Assessmen t No Information Instructions Date Instruction Additional Infor mation No Information Assessments Type Assessment Date No Information Patient Care Teams Name Effective Dates (start - stop) Status Members No Information
[2024-08-07 12:25] LABS: Basophils Percent Auto 0.3 % (0.2-1.2); Eosinophils Absolute Auto 0.1 K/mm3 (0-0.3); Eosinophils Percent Auto 2.3 % (0-4.4); Hematocrit 41.7 % (37.0-47.0); Hemoglobin 13.2 g/dL (12.0-15.0); Immature Granulocyte Absolute 0.03 K/mm3 (0.00-0.031); Immature Granulocyte Percent A 0.5 % (0-0.5); Lymphocytes Absolute Auto 0.98 K/mm3 (0.9-3.2); Lymphocytes Percent Auto 16.1 % (18.3-44.2); Mean Corpuscular HGB Conc 31.7 g/dl (32-36); Mean Corpuscular Volume 88.3 fl (80-100); Monocytes Absolute Auto 0.7 K/mm3 (0.1-0.6); Monocytes Percent Auto 11.8 % (2.6-8.5); Neutrophils Absolute Auto 4.2 K/mm3 (1.3-6.7); Platelet Count Result 189 k/mm3 (150-375); Red Blood Count 4.72 M/mm3 (4.2-5.4); Red Cell Distribution Width 14.3 % (11.5-14.5); White Blood Count 6.1 K/mm3 (4.5-10.0)
[2024-08-07 12:35] LABS: Alanine Aminotransferase 21 U/L (6-35); Albumin Level 4.4 g/dL (3.5-5.1); Alkaline Phosphatase 88 U/L (38-126); Anion Gap 7 mmol/L (4-12); Aspartate Amino Transferase 37 U/L (14-36); Bilirubin,Total 0.7 mg/dL (0.2-1.3); Blood Urea Nitrogen 17 mg/dL (7-17); Calcium 9.7 mg/dL (8.4-10.2); Carbon Dioxide 30 mmol/L (22-30); Chloride 102 mmol/L (98-107); Cholesterol 154 mg/dL (0-200); Estimated Glomerular Filt Rate > 60; Glucose 113 mg/dL (65-110); HDL Direct 46 mg/dL; Potassium 4.2 mmol/L (3.4-5.0); Sodium 139 mmol/L (137-145); Total Protein 7.6 g/dL (6.3-8.2); Triglycerides 85 mg/dL (<150)
[2024-08-07 12:46] LABS: LDL Cholesterol Direct 71 mg/dL
[2024-08-07 13:37] LABS: Vitamin D 25 Hydroxy 33.1 ng/mL
== END 2024-08-07 07:57 | disposition home or self-care (01) ==
PROVIDERS: PCP Family Medicine; Visit Provider Family Medicine
DX: E78.5 Hyperlipidemia, unspecified (principal); I10 Essential (primary) hypertension; R73.03 Prediabetes; E55.9 Vitamin D deficiency, unspecified; E53.8 Deficiency of other specified B group vitamins; Z00.00 Encounter for general adult medical examination without abnormal findings
CPT/HCPCS: 36415; 80053; 80061; 82306; 82607; 83036; 84443; 85025

== ENCOUNTER 2025-02-12 11:42 | Outpatient (CLI) | payer OTHER, SELFPAY ==
--- OUTSIDE RECORDS SUMMARY | 2025-02-12 13:53 | XMS_ITS | Encounter Summary ---
Author Organization [facility] Address [address] [place] [address] Care Team Providers Care Line Maintenance Technician Name Role Phone Richi Lee MD Primary [...] on file Legal Sex Female 4:07 AM RF TEST TECHNICIAN Gender Identity Not on file Sexual Orientation Not on file documented as of this encounter Plan of Treatment Not on file documented as of this encounter Visit Diagnoses Not on filedocumented in this encounter Care Teams Line Maintenance Technician Relationship Specialty Start Date End Date Richi Lee MD PCP - General 12/01/99 documented as of this encounter
--- OUTSIDE RECORDS SUMMARY | 2025-02-12 13:53 | XMS_ITS | Encounter Summary ---
Author Organization [facility] Address [address] [place] [address] Care Team Providers Care Resaw Feeder Name Role Phone Richi Lee MD Primary [...] on file Legal Sex Female 4:07 AM CHUCK WAGON COOK Gender Identity Not on file Sexual Orientation Not on file documented as of this encounter Plan of Treatment Not on file documented as of this encounter Visit Diagnoses Diagnosis Abdominal pain, unspecified site- Primary documented in this encounter Care Teams Resaw Feeder Relationship Specialty Start Date End Date Richi Lee MD PCP - General 12/01/99 documented as of this encounter
--- OUTSIDE RECORDS SUMMARY | 2025-02-12 13:53 | XMS_ITS | Encounter Summary ---
Author Organization [facility] Address [address] [place] [address] Care Team Providers Care Train Inspector Name Role Phone Richi Lee MD Primary Care Provider Unavailable Encounter Details Date Type Department Care Team (Latest Contact Info) Description 01/06/2005 Outpatient Historical HIS [facility] Richi Velez MD NO ADDRESS ON FILE HYPERLIPIDEMIA NEC/NOS (Primary Dx) Social History Tobacco Use Types Packs/Day Years Used Date Smoking Tobacco: Never Assessed Comments Unknown Sex and Gender Information Value Date Recorded Sex Assigned at Not on file Legal Sex Female 4:07 AM METAL SANDER Gender Identity Not on file Sexual Orientation Not on file documented as of this encounter Plan of Treatment Not on file documented as of this encounter Procedures Procedure Name Priority Date/Time Associated Diagnosis Comments LIPID PANEL Routine 01/06/2005 11:57 AM METAL SANDER COMPREHENSIVE METABOLIC PANEL Routine 01/06/2005 11:57 AM METAL SANDER documented in this encounter Results * (ABNORMAL) LIPID PANEL (01/06/2005 11:57 AM METAL SANDER) CHOLESTEROL 162 100 - 199 mg/dL INTERFACE [...] 129 High >=130 01/06/2005 11:5 7 AM METAL SANDER us Richi Lee MD CHEMISTRY ORDERABLES Fi nal Result Performing Organization Address City/[facility] Co de Phone Number INTERFACE SYSTEM Refer to clinic/hospital department * COMPREHENSIVE METABOLIC PANEL (01/06/2005 11:57 AM METAL SANDER) GLUCOSE 100 65 - 109 mg/dL INTERFACE [...] mmol/L INTERFACE SYSTEM 01/06/2005 11:5 7 AM METAL SANDER us Richi Lee MD CHEMISTRY ORDERABLES Fi nal Result INTERFACE SYSTEM Refer to clinic/hospital department documented in this encounter Visit Diagnoses Diagnosis Other and unspecified hyperlipidemia- Primary documented in this encounter Care Teams Train Inspector Relationship Specialty Start Date End Date Richi Lee MD PCP - General 12/01/99 documented as of this encounter
--- OUTSIDE RECORDS SUMMARY | 2025-02-12 13:53 | XMS_ITS | Encounter Summary ---
Author Organization [facility] Address [address] [place] [address] Care Team Providers Care Kettle Operator Head Name Role Phone Richi Lee MD Primary Care Provider Unavailable Encounter Details Date Type Department Care Team (Latest Contact Info) Description 09/08/2003 Outpatient Historical HIS [facility] Richi Velez MD NO ADDRESS ON FILE HYPERLIPIDEMIA NEC/NOS (Primary Dx) Social History Tobacco Use Types Packs/Day Years Used Date Smoking Tobacco: Never Assessed Comments Unknown Sex and Gender Information Value Date Recorded Sex Assigned at Not on file Legal Sex Female 4:07 AM TECHNOLOGY OFFICER Gender Identity Not on file Sexual Orientation Not on file documented as of this encounter Plan of Treatment Not on file documented as of this encounter Visit Diagnoses Diagnosis Other and unspecified hyperlipidemia- Primary documented in this encounter Care Teams Kettle Operator Head Relationship Specialty Start Date End Date Richi Lee MD PCP - General 12/01/99 documented as of this encounter
--- OUTSIDE RECORDS SUMMARY | 2025-02-12 13:53 | XMS_ITS | Encounter Summary ---
Author Organization [facility] Address [address] [place] [address] Care Team Providers Care Merchant Patroller Name Role Phone Richi Lee MD Primary Care Provider Unavailable Encounter Details Date Type Department Care Team (Latest Contact Info) Description 01/05/2006 Outpatient Historical HIS [facility] Richi Velez MD NO ADDRESS ON FILE Unspecified Essential Hypertension (Primary Dx) Social History Tobacco Use Types Packs/Day Years Used Date Smoking Tobacco: Never Assessed Comments Unknown Sex and Gender Information Value Date Recorded Sex Assigned at Not on file Legal Sex Female 4:07 AM CRYSTAL GROWER Gender Identity Not on file Sexual Orientation Not on file documented as of this encounter Plan of Treatment Not on file documented as of this encounter Procedures Procedure Name Priority Date/Time Associated Diagnosis Comments CBC WITH DIFFERENTIAL Routine 01/05/2006 11:50 AM CRYSTAL GROWER CBC WITH DIFFERENTIAL Routine 01/05/2006 11:50 AM CRYSTAL GROWER TSH Routine 01/05/2006 11:50 AM CRYSTAL GROWER LIPID PANEL Routine 01/05/2006 11:50 AM CRYSTAL GROWER documented in this encounter Results * CBC WITH DIFFERENTIAL (01/05/2006 11:50 AM CRYSTAL GROWER) NEUTROPHILS 68 45 - 70 % INTERFAC [...] K/uL INTERFACE SYSTEM 01/05/2006 11:5 0 AM CRYSTAL GROWER Richi Lee MD HEMATOLOGY ORDERABLES F inal Result INTERFACE SYSTEM Refer to clinic/hospital department * (ABNORMAL) CBC WITH DIFFERENTIAL (01/05/2006 11:50 AM CRYSTAL GROWER) WBC 6.8 4.0 - 9.8 K/uL INTERFACE [...] fL INTERFACE SYSTEM 01/05/2006 11:5 0 AM CRYSTAL GROWER Richi Lee MD HEMATOLOGY ORDERABLES F inal Result INTERFACE SYSTEM Refer to clinic/hospital department * TSH (01/05/2006 11:50 AM CRYSTAL GROWER) TSH 1.68 0.27 - 4.20 uU/mL INTERFACE SYSTEM 01/05/2006 11:5 0 AM CRYSTAL GROWER Richi Lee MD CHEMISTRY ORDERABLES Fi nal Result INTERFACE SYSTEM Refer to clinic/hospital department * LIPID PANEL (01/05/2006 11:50 AM CRYSTAL GROWER) CHOLESTEROL 166 100 - 199 mg/dL INTERFACE SYSTEM TRIGLYCERIDE 100 10 - 149 mg/dL INTERFACE SYSTEM HDL 50 40 - 59 mg/dL INTERFACE SYSTEM CHOL/HDL RATIO 3.3 2.0 - 5.0 INTER FACE SYSTEM LDL CALCULATED 96 <=99 mg/dL INTERFACE SYSTEM LIPID PANEL COMMENT See Below INTERFACE SYSTEM Comment: The adult ATP and pediatric NCEP classifications for lipids are available on the [facility] Intranet at: [email or web address] Select: Lab Policies and Procedures Select: Reference Ranges - Lipids 01/05/2006 11:5 0 AM CRYSTAL GROWER us Richi Lee MD CHEMISTRY ORDERABLES Fi nal Result INTERFACE SYSTEM Refer to clinic/hospital department documented in this encounter Visit Diagnoses Diagnosis Unspecified essential hypertension- Primary documented in this encounter Care Teams Merchant Patroller Relationship Specialty Start Date End Date Richi Lee MD PCP - General 12/01/99 documented as of this encounter
--- OUTSIDE RECORDS SUMMARY | 2025-02-12 13:53 | XMS_ITS | Encounter Summary ---
Author Organization [facility] Address [address] [place] [address] Care Team Providers Care Public Records Researcher Name Role Phone Richi Lee MD Primary [...] on file Legal Sex Female 4:07 AM EDUCATIONAL AIDE Gender Identity Not on file Sexual Orientation Not on file documented as of this encounter Plan of Treatment Not on file documented as of this encounter Visit Diagnoses Not on filedocumented in this encounter Care Teams Public Records Researcher Relationship Specialty Start Date End Date Richi Lee MD PCP - General 12/01/99 documented as of this encounter
--- OUTSIDE RECORDS SUMMARY | 2025-02-12 13:53 | XMS_ITS | Encounter Summary ---
Author Organization [facility] Address [address] [place] [address] Attn: Epic Prelude ADT BERTA RODRIGUEZ [phone] Care Team Providers Care Mentally Impaired Teacher Name Role Phone Richi Lee MD Primary [...] on file Legal Sex Female 4:07 AM MANNEQUIN MOLDER Gender Identity Not on file Sexual Orientation Not on file documented as of this encounter Plan of Treatment Not on file documented as of this encounter Visit Diagnoses Not on filedocumented in this encounter Care Teams Mentally Impaired Teacher Relationship Specialty Start Date End Date Richi Lee MD PCP - General 12/01/99 documented as of this encounter
--- OUTSIDE RECORDS SUMMARY | 2025-02-12 13:53 | XMS_ITS | Encounter Summary ---
Author Organization [facility] Address [address] [place] [address] Care Team Providers Care Chinchilla Machine Operator Name Role Phone Richi Lee MD Primary Care Provider Unavailable Encounter Details Date Type Department Care Team (Late st Contact Info) Description 12/01/1999 Outpatient Historical [facility], [address] Richi Lee MD NO ADDRESS ON FILE Social History Tobacco Use Types Packs/Day Years Used Date Smoking Tobacco: Never Assessed Comments Unknown Sex and Gender Information Value Date Recorded Sex Assigned at Not on file Legal Sex Female 4:07 AM CONGRESSIONAL AIDE Gender Identity Not on file Sexual Orientation Not on file documented as of this encounter Plan of Treatment Not on file documented as of this encounter Visit Diagnoses Not on filedocumented in this encounter Care Teams Chinchilla Machine Operator Relationship Specialty Start Date End Date Richi Lee MD PCP - General 12/01/99 documented as of this encounter
--- OUTSIDE RECORDS SUMMARY | 2025-02-12 13:53 | XMS_ITS | Encounter Summary ---
Author Organization [facility] Address [address] [place] [address] Care Team Providers Care Caregiver Assisted Living Name Role Phone Richi Lee MD Primary Care Provider Unavailable Encounter Details Date Type Department Care Team (Latest Contact Info) Description 07/09/2002 Outpatient Historical HIS [facility] Richi Velez MD NO ADDRESS ON FILE HYPERTENSION NOS (Primary Dx) Social History Tobacco Use Types Packs/Day Years Used Date Smoking Tobacco: Never Assessed Comments Unknown Sex and Gender Information Value Date Recorded Sex Assigned at Not on file Legal Sex Female 4:07 AM INFORMATION TECHNOLOGY PROGRAM MANAGER Gender Identity Not on file Sexual Orientation Not on file documented as of this encounter Plan of Treatment Not on file documented as of this encounter Visit Diagnoses Diagnosis Unspecified essential hypertension- Primary documented in this encounter Care Teams Caregiver Assisted Living Relationship Specialty Start Date End Date Richi Lee MD PCP - General 12/01/99 documented as of this encounter
--- OUTSIDE RECORDS SUMMARY | 2025-02-12 13:53 | XMS_ITS | Encounter Summary ---
Author Organization [facility] Address [address] [place] [address] Attn: Epic Prelude ADT BERTA RODRIGUEZ [phone] Care Team Providers Care Community Development Technician Name Role Phone Richi Lee MD [...] on file Legal Sex Female 4:07 AM BRAKE REPAIR SUPERVISOR Gender Identity Not on file Sexual Orientation Not on file documented as of this encounter Plan of Treatment Not on file documented as of this encounter Visit Diagnoses Not on filedocumented in this encounter Care Teams Community Development Technician Relationship Specialty Start Date End Date Richi Lee MD PCP - General 12/01/99 documented as of this encounter
--- OUTSIDE RECORDS SUMMARY | 2025-02-12 13:53 | XMS_ITS | Encounter Summary ---
Author Organization [facility] Address [address] [place] [address] Attn: Epic Prelude ADT BERTA RODRIGUEZ [phone] Care Team Providers Care Candy Polisher Name Role Phone Richi Lee MD Primary [...] on file Legal Sex Female 4:07 AM RECORD PRODUCER Gender Identity Not on file Sexual Orientation Not on file documented as of this encounter Plan of Treatment Not on file documented as of this encounter Visit Diagnoses Not on filedocumented in this encounter Care Teams Candy Polisher Relationship Specialty Start Date End Date Richi Lee MD PCP - General 12/01/99 documented as of this encounter
--- OUTSIDE RECORDS SUMMARY | 2025-02-12 13:53 | XMS_ITS | Encounter Summary ---
Author Organization [facility] Address [address] [place] [address] Care Team Providers Care Survey Technologist Name Role Phone Richi Lee MD Primary Care Provider Unavailable Encounter Details Date Type Department Care Team (Latest Contact Info) Description 09/03/2004 Outpatient Historical HIS [facility] Richi Velez MD NO ADDRESS ON FILE ROUTINE MEDICAL EXAM (Primary Dx) Social History Tobacco Use Types Packs/Day Years Used Date Smoking Tobacco: Never Assessed Comments Unknown Sex and Gender Information Value Date Recorded Sex Assigned at Not on file Legal Sex Female 4:07 AM SURFACE ROOM SHOP OPTICIAN Gender Identity Not on file Sexual Orientation [...] Primary documented in this encounter Care Teams Survey Technologist Relationship Specialty Start Date End Date Richi Lee MD PCP - General 12/01/99 documented as of this encounter
--- OUTSIDE RECORDS SUMMARY | 2025-02-12 13:54 | XMS_ITS | Encounter Summary ---
Author Organization [facility] Address [address] [place] [address] Care Team Providers Care Spa Consultant Name Role Phone Richi Lee MD Primary Care Provider Unavailable Encounter Details Date Type Department Care Team (Latest Contact Info) Description 06/22/2001 Outpatient Historical HIS [facility] Richi Velez MD NO ADDRESS ON FILE HYPERTENSION NOS (Primary Dx) Social History Tobacco Use Types Packs/Day Years Used Date Smoking Tobacco: Never Assessed Comments Unknown Sex and Gender Information Value Date Recorded Sex Assigned at Not on file Legal Sex Female 4:07 AM DRILL OPERATOR PNEUMATIC Gender Identity Not on file Sexual Orientation Not on file documented as of this encounter Plan of Treatment Not on file documented as of this encounter Visit Diagnoses Diagnosis Unspecified essential hypertension- Primary documented in this encounter Care Teams Spa Consultant Relationship Specialty Start Date End Date Richi Lee MD PCP - General 12/01/99 documented as of this encounter
--- OUTSIDE RECORDS SUMMARY | 2025-02-12 13:54 | XMS_ITS | Clinical Summary ---
Author Organization [facility] Address [address] [place] [address] Attn: Epic Prelude ADT BERTA RODRIGUEZ [phone] Care Team Providers Care Lead Cook Name Role Phone Richi Lee MD Primary Care Provider Unavailable Immunizations Immunization Administration Dates Next Due Influenza Seasonal Unspecified Formulation IM Social History Tobacco Use Types Packs/Day Years Used Date Smoking Tobacco: Never Assessed Comments Unknown Sex and Gender Information Value Date Recorded Sex Assigned at Not on file Legal Sex Female 4:07 AM SEWING ROOM SUPERVISOR Gender Identity Not on file Sexual Orientation Not on file Plan of Treatment Health Maintenance Due Date Last Done Comments DTAP/TDAP/TD VACCINES (1 - Tdap) 1961 PNEUMOCOCCAL VACCINE 50+ YEARS (1 of 1 - PCV) 05/19/18 93 ZOSTER VACCINE (1 of 2) 1992 OSTEOPOROSIS SCREENING 05/20/2007 RSV VACCINE (60+ or ) (1 - 1-dose 75+ series) 2017 INFLUENZA VACCINE (#1) 2024 12/13/2012 Care Teams Lead Cook Relationship Specialty Start Date End Date Richi Lee MD PCP - General 12/01/99
--- OUTSIDE RECORDS SUMMARY | 2025-02-12 13:54 | XMS_ITS | Encounter Summary ---
Author Organization [facility] Address [address] [place] [address] Care Team Providers Care Sexual Health Physician Name Role Phone Richi Lee MD Primary [...] on file Legal Sex Female 4:07 AM DIPLOMATIC COURIER Gender Identity Not on file Sexual Orientation Not on file documented as of this encounter Plan of Treatment Not on file documented as of this encounter Visit Diagnoses Not on filedocumented in this encounter Care Teams Sexual Health Physician Relationship Specialty Start Date End Date Richi Lee MD PCP - General 12/01/99 documented as of this encounter
--- OUTSIDE RECORDS SUMMARY | 2025-02-12 13:54 | XMS_ITS | Encounter Summary ---
Author Organization [facility] Address [address] [place] [address] Care Team Providers Care Semi Conductor Assembler Name Role Phone Richi Lee MD Primary Care Provider Unavailable Encounter Details Date Type Department Care Team (Latest Contact Info) Description 12/23/1999 Outpatient Historical HIS [facility]UNITY GALLERY DIRECT[facility] Richi Lee MD NO ADDRESS ON FILE Type II or unspecified type diabetes mellitus without mention of complication, not stated as uncontrolled (Primary Dx) Social History Tobacco Use Types Packs/Day Years Used Date Smoking Tobacco: Never Assessed Comments Unknown Sex and Gender Information Value Date Recorded Sex Assigned at Not on file Legal Sex Female 4:07 AM AFTER SCHOOL COUNSELOR Gender Identity Not on file Sexual Orientation Not on file documented as of this encounter Plan of Treatment Not on file documented as of this encounter Visit Diagnoses Diagnosis Type II or unspecified type diabetes mellitus without mention of complication, not stated as uncontrolled- Primary documented in this encounter Care Teams Semi Conductor Assembler Relationship Specialty Start Date End Date Richi Lee MD PCP - General 12/01/99 documented as of this encounter
--- OUTSIDE RECORDS SUMMARY | 2025-02-12 13:54 | XMS_ITS | Encounter Summary ---
Author Organization [facility] Address [address] [place] [address] Care Team Providers Care Third Cook Name Role Phone Richi Lee MD [...] on file Legal Sex Female 4:07 AM CLIENT SERVICES ASSISTANT Gender Identity Not on file Sexual Orientation Not on file documented as of this encounter Plan of Treatment Not on file documented as of this encounter Visit Diagnoses Not on filedocumented in this encounter Care Teams Third Cook Relationship Specialty Start Date End Date Richi Lee MD PCP - General 12/01/99 documented as of this encounter
[2025-02-12 19:49] LABS: Alanine Aminotransferase 20 U/L (6-35); Albumin Level 4.7 g/dL (3.5-5.1); Alkaline Phosphatase 86 U/L (38-126); Anion Gap 6 mmol/L (4-12); Aspartate Amino Transferase 33 U/L (14-36); Bilirubin,Total 0.8 mg/dL (0.2-1.3); Blood Urea Nitrogen 23 mg/dL (7-17); Calcium 9.7 mg/dL (8.4-10.2); Carbon Dioxide 32 mmol/L (22-30); Chloride 102 mmol/L (98-107); Estimated Glomerular Filt Rate > 60; Glucose 96 mg/dL (65-110); Potassium 4.5 mmol/L (3.4-5.0); Sodium 140 mmol/L (137-145); Total Protein 7.9 g/dL (6.3-8.2)
[2025-02-12 21:01] LABS: Hemoglobin A1C 6.1 % (<5.7)
== END 2025-02-12 11:43 | disposition home or self-care (01) ==
LOC: ANHGOSHLAB 11:42
PROVIDERS: PCP Family Medicine; Visit Provider Family Medicine
DX: I10 Essential (primary) hypertension (principal); E11.9 Type 2 diabetes mellitus without complications
CPT/HCPCS: 36415; 80053; 82043; 83036